=== PATIENT | female | born 1960 | race Caucasian/White ===

== ENCOUNTER 2017-01-19 11:57 | Emergency (ER) | payer OTHER ==
[~2017-01-19] VITALS: Ht 162.6 cm; Wt 60.0 kg
[~2017-01-19 11:57] MED LIST: ADVIL; SYN1; TRAZADONE
[2017-01-19 12:35] VITALS: Ht 162.6 cm; Wt 60.0 kg
[2017-01-19] MEDS ORDERED: ONDANSETRON (ODT) 4 MG TAB ODT STA (12:48)
[2017-01-19] MEDS ORDERED: ACETAMINOPHEN 325 MG TAB PO ONE (13:00)
--- NOTE | 2017-01-19 13:57 | RADRPT ---
PROCEDURE: CT Head without. CLINICAL INDICATION: Headache, vomiting. TECHNIQUE: The study was performed utilizing a multi-slice, multidetector CT scanner. Direct spira l 1 mm axial sections were obtained through the head without the use of intravenous contrast materia l. 1 or more of the following dose reduction techniques were utilized: Automated exposure control, adjustment of the mA and/or kV according to patient's size, iterative reconstruction technique. Co yodit and sagittal reformations were obtained. The images were reviewed on a PACS workstation. RADIATION DOSE: CTDIvol: 44.3 mGyDLP: 630.2 mGy-cm COMPARISON: No prior studies are available for comparison. FINDINGS: There is no intracranial hemorrhage, extra-axial fluid collection, mass lesion, midline shift or hyd rocephalus. The ventricles, sulci and cisterns are within normal limits. The white matter is unrem arkable. The norris-white matter differentiation is preserved. The basal cisterns are patent. The m idline structures are intact. The orbits, calvarium and extracranial soft tissues are normal in malini earance. The visualized paranasal sinuses, mastoid air cells and middle ear cavities are normally ae rated. IMPRESSION: 1. No acute intracranial abnormality. No intracranial hemorrhage, extra-axial fluid collection, ma ss lesion or hydrocephalous. RPTAT: DD .Hadley Silveira MD, MD Date Time Electronically viewed and signed by .Hadley Silveira MD, on 01/19/2017 13:57 .S/
[2017-01-19 14:45] LABS: URINE BLOOD (Dip) POC 1+ (NEGATIVE)
[2017-01-19] MEDS ORDERED: TRAM-40 PO (14:55)
[2017-01-19] MEDS ORDERED: BENA20TA65 PO (14:55)
[2017-01-19] MEDS ORDERED: ONDA8TAB14 PO (14:55)
--- NOTE | 2017-01-19 14:58 | ERD ---
ER Documentation Chief Complaint Date/Time DATE: 01/19/17 TIME: 14:56 Chief Complaint Pt hypertensive, ALAS , vomiting X 1 month. no meds currently. HPI This 48-year-old female complains of elevated blood pressure intermittently for last month associated with bitemporal headache and vomiting which is nonbilious nonbloody. She is intermittent vomiting and nausea but no abdominal pain, urinary complaints, neck stiffness, rashes. She has been seen in another ER and diagnosed with UTI and treated for this and apparently there is some urine culture pending from her primary doctor. She has never had a history of high blood pressure and never been treated. She denies any chest pain shortness of breath or abdominal pain. She denies any weakness or visual changes or bowel or bladder incontinence. ROS All systems reviewed and are negative except as per history of present illness. Medications Home Meds Active Scripts Tramadol Hcl* (Ultram*) 50 Mg Tablet, 50 MG PO Q6H Y for PAIN, #14 TAB Prov:YOHAN VELASQUEZ MD 01/19/17 Ondansetron (Ondansetron Odt) 8 Mg Tab.rapdis, 8 MG PO Q6H Y for NAUSEA AND/OR VOMITING, #6 TAB Prov:YOHAN VELASQUEZ MD 01/19/17 Benazepril Hcl* (Lotensin*) 20 Mg Tablet, 20 MG PO DAILY, #30 TAB Prov:YOHAN VELASQUEZ MD 01/19/17 Reported Medications [Trazadone] No Conflict Check 06/12/13 [Advil] No Conflict Check 06/12/13 Levothyroxine Sodium (Levothroid) 100 Mcg Tablet 02/01/10 Allergies Allergies: Coded Allergies: No Known Allergy (Verified , 01/19/17) PMhx/Soc History of Surgery: Yes (HEMORRHOIDECTOMY) Anesthesia Reaction: No Hx Neurological Disorder: No Hx Respiratory Disorders: No Hx Cardiac Disorders: No Hx Psychiatric Problems: Yes (ANXIETY) Hx Miscellaneous Medical Probl: No Hx Alcohol Use: No Hx Substance Use: No Hx Tobacco Use: No Smoking Status: Never smoker Physical Exam Vitals Vital Signs Date Time Temp Pulse Resp B/P Pulse Ox O2 Delivery O2 Flow Rate FiO2 01/19/17 12:35 64.0 62 18 181/81 99 Physical Exam Const: [] Alert, [id number]. Head: Atraumatic Eyes: Normal Conjunctiva. Eyes are PERRLA and extraocular movements intact ENT: Normal External Ears, Nose and Mouth. Neck: Full range of motion..~ No meningismus. Resp: Clear to auscultation bilaterally Cardio: Regular rate and rhythm, no murmurs Abd: Soft, non tender, non distended. Normal bowel sounds Skin: No petechiae or rashes Back: No midline or flank tenderness Ext: No cyanosis, or edema Neur: Awake and alert. Normal gait. Cranial nerves II through XII grossly intact. No appreciable focal neurologic deficits. Psych: Normal Mood and Affect Results 24 hrs Laboratory Tests Test 01/19/17 14:46 Bedside Urine pH (LAB) 6.0 Bedside Urine Protein (LAB) Negative Bedside Urine Glucose (UA) Negative Bedside Urine Ketones (LAB) Negative Bedside Urine Blood 1+ Bedside Urine Nitrite (LAB) Negative Bedside Urine Leukocyte Esterase (L Negative Current Medications Medications (Trade) Dose Ordered Sig/Alexi Route PRN Reason Start Time Stop Time Status Last Admin Dose Admin Ondansetron HCl (Zofran Odt) 8 mg ONCE STAT ODT 01/19/17 12:48 01/19/17 12:51 DC 01/19/17 13:12 Acetaminophen (Tylenol Tab) 650 mg ONCE ONCE PO 01/19/17 13:00 01/19/17 13:01 DC 01/19/17 13:12 Procedures/MDM Given the uncertain cause of headache associated with vomiting CT brain was performed which was read as normal by the radiologist. Urine shows trace hemoglobin leukocytes, nitrates glucose and sent for culture. Patient is given Tylenol and Zofran by mouth. Patient is taking ibuprofen at home. This should be considered as a cause of her vomiting. Patient will be initiated on Lotensin given her recent high blood pressure. Patient is advised to follow-up with primary doctor this week for urine culture results. We will hold treatment until culture results. Patient should return for fevers, vomiting, chest pain, shortness of breath or new worsening symptoms as directed and aftercare instructions. The patient was stable with no new complaints during the ER course. Clinically, there is no current evidence to suggest meningitis, sepsis, acute abdomen, pneumonia, acute coronary syndrome, pulmonary embolism, or any other emergent condition appearing to require further evaluation or hospitalization. The patient should certainly return for any new or worsening symptoms per the aftercare instructions. They should otherwise follow-up with her primary care doctor for reevaluation this week. Departure Diagnosis: Primary Impression: Hypertension Hypertension type: essential hypertension Qualified Code: I10 - Essential hypertension Condition: Stable Patient Instructions: Headache, Unspecified, Hypertension, New (Begin Treatment ) Additional Instructions: Examines normal hoy. Cheque otro vez con mendiola doctor primario en el proximo [place] or regresa para mas o nueva simptomas. YOHAN VELASQUEZ MD January 19, 2017 14:58
[2017-01-19 15:37] VITALS: BP 170/74; PULSE 56; RESP 18; TEMP 98.3
== END 2017-01-19 15:38 | disposition home or self-care (01) ==
LOC: FTE 11:57
DX: I10 Essential (primary) hypertension (principal); E03.9 Hypothyroidism, unspecified; R51 Headache; R11.2 Nausea with vomiting, unspecified
CPT/HCPCS: 70450; 81003; 87086; 93005; Z7502; Z7610

== ENCOUNTER 2017-02-22 02:43 | Inpatient (IN) | payer OTHER ==
[~2017-02-22] VITALS: Ht 160 cm; Wt 57.6 kg
[~2017-02-22 02:43] MED LIST changes: +BENA20TA65 PO; +ONDA8TAB14 PO; +TRAM-40 PO
[2017-02-22 04:19] VITALS: Ht 160 cm; Wt 57.6 kg
[2017-02-22 04:44] VITALS: BP 171/90; PULSE 52; RESP 18
[2017-02-22] MEDS: morphine 4 MG/ML VIAL IV PRN ×3 (05:49→17:49)
[2017-02-22] MEDS: ONDANSETRON 4 MG INJ IV PRN ×3 (05:50→22:05)
[2017-02-22] MEDS: DEXTROSE 5%-0.45% NACL 1,000 ML IV SCH ×2 (05:56→15:43)
[2017-02-22 06:18] VITALS: BP 148/75; PULSE 60; RESP 17
[2017-02-22 07:08] LABS: ADD SCAN DIFF NO
[2017-02-22 07:12] LABS: BASOPHIL # 0.1 10^3/ul (0.0-0.1); BASOPHILS % 0.9 % (0.0-2.0); EOSINOPHILS # 0.1 10^3/ul (0.0-0.5); EOSINOPHILS % 1.9 % (0.0-7.0); HEMATOCRIT 33.7 % (37.0-47.0); HEMOGLOBIN 11.7 g/dl (12.0-16.0); LYMPHOCYTES # 1.8 10^3/ul (0.8-2.9); LYMPHOCYTES % 27.1 % (15.0-51.0); MEAN CORPUSCULAR HEMOGLOBIN 32.1 pg (29.0-33.0); MEAN CORPUSCULAR HGB CONC 34.7 g/dl (32.0-37.0); MEAN CORPUSCULAR VOLUME 92.6 fl (82.0-101.0); MEAN PLATELET VOLUME 9.8 fl (7.4-10.4); MONOCYTE # 0.3 10^3/ul (0.3-0.9); NEUTROPHIL # 4.4 10^3/ul (1.6-7.5); NEUTROPHILS % 64.8 % (39.0-77.0); PLATELET COUNT 224 10^3/UL (140-415); RED BLOOD COUNT 3.64 10^6/ul (4.20-5.40); WHITE BLOOD COUNT 6.8 10^3/ul (4.8-10.8)
[2017-02-22 07:22] VITALS: BP 155/68; RESP 18
[2017-02-22 07:48] LABS: ALBUMIN 4.2 g/dl (3.3-4.9); ALBUMIN/GLOBULIN RATIO 1.75; BILIRUBIN,INDIRECT 0.8 mg/dl (0-1.1); BILIRUBIN,TOTAL 0.8 mg/dl (0.2-1.3); CALCIUM 8.4 mg/dl (8.4-10.2); CREATININE 0.88 mg/dl (0.44-1.00); MAGNESIUM 2.2 mg/dl (1.7-2.5); PHOSPHORUS 4.2 mg/dl (2.5-4.9); POTASSIUM 3.6 mmol/L (3.5-5.1); TOTAL PROTEIN 6.6 g/dl (6.1-8.1)
--- NOTE | 2017-02-22 08:31 | HP ---
DATE OF ADMISSION: 02/22/2017 TIME SEEN: 6 a.m. CHIEF COMPLAINT: Abdominal pain. HISTORY OF PRESENT ILLNESS: The patient is a 56-year-old female with a history of hypertension, gas tritis, hypothyroidism, anxiety/depression and cholecystectomy who was transferred from an outside ospital because of insurance reasons for management of right upper quadrant pain and choledocholithi asis. The patient presented to the outside hospital complaining of abdominal pain which was mainly localized in the right upper quadrant area. Ultrasound shows sludge as well as dilated common bile duct measuring 8 mm. Labs showed an AST of 292 and ALT of 139. She was transferred here because of insurance reasons with a diagnosis of choledocholithiasis. She reported nausea, but no vomiting. She denied chest pain, shortness of breath, fever, chills. REVIEW OF SYSTEMS: A 12-point review of the brain was performed, negative except as in the HPI. PAST MEDICAL HISTORY: As per HPI. PAST SURGICAL HISTORY: Cholecystectomy in 2013. SOCIAL HISTORY: Denied a history of tobacco, alcohol, or illicit drug use. ALLERGIES: NO KNOWN DRUG ALLERGIES. HOME MEDICATIONS: 1. Benazepril 2. Tramadol. 3. Zofran. 4. Levothyroxine. 5. Trazodone. PHYSICAL EXAMINATION: VITAL SIGNS: Blood pressure 171/90, heart rate 52, respiratory rate 18, temperature 98.2, oxygen sa turation 99% on room air. GENERAL: No acute distress, answering questions appropriately. HEENT: Normocephalic, atraumatic. Extraocular muscles intact. CARDIOVASCULAR: Slightly bradycardic with regular rhythm. LUNGS: Clear. ABDOMEN: Soft. There is tenderness in the right upper quadrant area and in the epigastric area wit h no guarding, rebound tenderness, or rigidity. EXTREMITIES: No edema. NEUROLOGIC: No focal deficits. LABORATORY: From outside hospital, AST 292, ALT 139. IMPRESSION: 1. Likely choledocholithiasis. 2. Right upper quadrant pain, secondary to above. 3. Hypertension, blood pressure not at goal. 4. History of hypothyroidism. 5. History of anxiety/depression. PLAN: Will keep n.p.o. We will obtain MRCP. We will place a GI consult. We will provide pain med ication and antiemetics as needed. Will adjust antihypertensives for better blood pressure control. We will check a TSH in the morning and resume her Synthroid when she is no longer n.p.o. Further workup and management per clinical course. Dictated By: KARISSA FRIEDMAN/LYDIA Conf#: [id number] DID#: [id number]
[2017-02-22] MEDS: BENAZEPRIL 20 MG TAB PO SCH (08:42)
[2017-02-22] MEDS: LEVOTHYROXINE 100 MCG TAB PO SCH (08:42)
--- NOTE | 2017-02-22 17:51 | CONS ---
Date/Time of Note Date/Time of Note DATE: 02/22/17 TIME: 17:42 Assessment/Plan Assessment/Plan Additional Assessment/Plan Assessment: Recurrent epigastric and right upper quadrant pain/abnormal liver function tests Rule out choledocholithiasis Post cholecystectomy 3 years prior Plan: Review MRCP as soon as available patient may require ERCP ERCP was explained to the patient in detail. Consultation Date/Type/Reason Admit Date/Time Feb 22, 2017 at 04:15 Date of Consultation: Feb 22, 2017 Type of Consultation: GI Reason for Consultation Abdominal pain Hx of Present Illness 56-year-old female hospitalized to transfer with complaints of epigastric and right upper quadrant abdominal pain. The patient states that her symptoms are recurrent and initiated shortly after cholecystectomy about 3 years prior, she describes frequent episodes of pain associated with nausea and vomiting. On this occasion the pain has been much more severe. She was seen at another institution where she was tentatively diagnosed choledocholithiasis unfortunately documentation is not available. At the present time she is awaiting MRCP. Of note her liver function tests are significantly elevated which could be consistent with choledocholithiasis. At the present time the patient appears comfortable, there is no fever, chills or diaphoresis. The patient has been advised that pending results of MRCP she may require ERCP with stone removal. The procedure was explained in detail including risks, benefits and alternatives. She is agreeable to proceed if necessary. Constitutional: improved, no complaints Eyes: no complaints ENT: no complaints Respiratory: no complaints Cardiovascular: no complaints Gastrointestinal: nausea, pain (Epigastric right upper quadrant), vomiting, No constipation, No decreased appetite, No diarrhea Genitourinary: no complaints Musculoskeletal: no complaints Skin: no complaints Neurologic: no complaints Endocrine: no complaints Lymphatic: no complaints Psychological: nl mood/affect, no complaints Immunologic: no complaints Past Medical History Medical History: no pertinent history Past Surgical History Past Surgical Hx: cholecystectomy Family History Significant Family History: no pertinent family hx Social History Alcohol Use: rarely Smoking Status: Never smoker Drug Use: none Exam/Review of Systems Vital Signs Vitals Vital Signs Date Time Temp Pulse Resp B/P Pulse Ox O2 Delivery O2 Flow Rate FiO2 02/22/17 07:22 98.5 52 18 155/68 99 02/22/17 06:18 Room Air Intake and Output 02/21/17 02/21/17 02/22/17 15:00 23:00 07:00 Intake Total 0 ml Output Total 500 ml Balance -500 ml Exam Constitutional: alert, oriented, well developed Psych: nl mood/affect, no complaints Head: atraumatic, normocephalic Eyes: EOMI, PERRL, nl conjunctiva, nl lids, nl sclera ENMT: nl external ears & nose, nl lips & teeth, nl nasal mucosa & septum Neck: non-tender, supple Respiratory: clear to auscultation, normal air movement Cardiovascular: nl pulses, regular rate and rhythm Gastrointestinal: bowel sounds, soft, tender (Moderate epigastric and right upper quadrant tenderness.), No ascites, No distended, No mass, No rebound or guarding Musculoskeletal: nl extremities to inspection, nl gait and stance Extremities: normal pulses 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, nl mental status, nl speech, nl strength Skin: nl turgor, No rash or lesions Lymph: nl lymph nodes Results Result Diagram: 02/22/17 0600 02/22/17 0600 Results 24 hrs Laboratory Tests Test 02/22/17 06:00 White Blood Count 6.8 Red Blood Count 3.64 L Hemoglobin 11.7 L Hematocrit 33.7 L Mean Corpuscular Volume 92.6 Mean Corpuscular Hemoglobin 32.1 Mean Corpuscular Hemoglobin Concent 34.7 Red Cell Distribution Width 13.0 Platelet Count 224 Mean Platelet Volume 9.8 Neutrophils % 64.8 Lymphocytes % 27.1 Monocytes % 5.0 Eosinophils % 1.9 Basophils % 0.9 Nucleated Red Blood Cells % 0.0 Neutrophils # 4.4 Lymphocytes # 1.8 Monocytes # 0.3 Eosinophils # 0.1 Basophils # 0.1 Nucleated Red Blood Cells # 0.0 Sodium Level 144 Potassium Level 3.6 Chloride Level 112 H Carbon Dioxide Level 24 Anion Gap 12 Blood Urea Nitrogen 8 Creatinine 0.88 Glucose Level 103 Calcium Level 8.4 Phosphorus Level 4.2 Magnesium Level 2.2 Total Bilirubin 0.8 Direct Bilirubin 0.00 Indirect Bilirubin 0.8 Aspartate Amino Transf (AST/SGOT) 309 H Alanine Aminotransferase (ALT/SGPT) 217 H Alkaline Phosphatase 122 H Total Protein 6.6 Albumin 4.2 Globulin 2.40 Albumin/Globulin Ratio 1.75 Medications Medications Current Medications Dextrose/Sodium Chloride (D5-1/2ns) 1,000 ml @ 100 mls/hr Q10H IV Last administered on 02/22/17 15:43; Admin Dose 100 MLS/HR; Start 02/22/17 at 05:30 Morphine Sulfate (morphine) 4 mg Q4H PRN IV PAIN LEVEL 6-10 Last administered on 02/22/17 11:40; Admin Dose 4 MG; Start 02/22/17 at 05:30 Ondansetron HCl (Zofran Inj) 4 mg Q6H PRN IV NAUSEA AND/OR VOMITING Last administered on 02/22/17 11:40; Admin Dose 4 MG; Start 02/22/17 at 05:30 Benazepril HCl (Lotensin) 20 mg DAILY PO Last administered on 02/22/17 08:42; Admin Dose 20 MG; Start 02/22/17 at 09:00 Levothyroxine Sodium (Synthroid) 100 mcg DAILY@06 PO Last administered on 08:42; Admin Dose 100 MCG; Start 02/22/17 at 09:00 CARLOS OKEEFE MD Feb 22, 2017 17:51
[2017-02-22 19:08] VITALS: BP 138/71; RESP 18
[2017-02-22 19:08] LABS: INR 1.06; PROTIME 13.8 Sec (12.2-14.2); PT RATIO 1.1
[2017-02-22 19:09] LABS: PARTIAL THROMBOPLASTIN TIME 24.7 Sec (25.0-35.0)
--- NOTE | 2017-02-22 21:43 | RADRPT ---
PROCEDURE: MRCP. CLINICAL INDICATION: Pain. TECHNIQUE: MRCP was performed on a high field MRI scanner. Patient was examined without contrast. 3-D coronal rotating MIP images of the biliary tree are available for review. COMPARISON: None. FINDINGS: The gallbladder surgically absent. Mild dilatation of the central intrahepatic ducts is observed. T he common bile duct is mildly dilated. The upper portion of the common bile duct measures approxima tely 8 mm in greatest diameter. The distal portion measures approximately 6-7 mm in greatest diamet er and tapers normally to the level of the ampulla. The common bile duct previously measured 5 mm in greatest diameter. There is no discrete signal voids to suggest the presence of choledocholithiasi s. The pancreatic duct is normal in caliber. The liver and spleen are homogeneous in signal intensity. The pancreas is normal in size and homoge neous in signal intensity. The adrenal glands are normal. The kidneys are symmetric in size and signal intensity. There is a 1.3 cm angiomyolipoma of the uppe r pole of the right kidney, which is unchanged. There is no hydronephrosis or perinephric edema. The abdominal aorta is normal in caliber. The stomach is collapsed. The visualized portions of the small and large intestines are unremarkabl e. There is no ascites. IMPRESSION: Cholecystectomy with mild intrahepatic and extrahepatic biliary duct dilatation, increased from prio r examination. No evidence of choledocholithiasis or extrinsic obstructing lesion. Stable right renal angiomyolipoma. RPTAT: HLST .Radha Park MD, Date Time Electronically viewed and signed by .Radha Park MD, MD on 02/22/2017 21:43 .T/
[2017-02-23] VITALS (9 sets, daily range): BP systolic 130–177; BP diastolic 59–86; PULSE 48–65; RESP 16–20
[2017-02-23] MEDS: morphine 4 MG/ML VIAL IV PRN ×4 (01:31→23:29)
[2017-02-23] MEDS: DEXTROSE 5%-0.45% NACL 1,000 ML IV SCH ×3 (01:31→21:11)
[2017-02-23 05:38] LABS: ADD SCAN DIFF NO
[2017-02-23 05:41] LABS: EOSINOPHILS # 0.3 10^3/ul (0.0-0.5); EOSINOPHILS % 5.9 % (0.0-7.0); HEMOGLOBIN 10.8 g/dl (12.0-16.0); LYMPHOCYTES # 2.1 10^3/ul (0.8-2.9); LYMPHOCYTES % 48.9 % (15.0-51.0); MEAN CORPUSCULAR HEMOGLOBIN 31.6 pg (29.0-33.0); MEAN CORPUSCULAR HGB CONC 32.7 g/dl (32.0-37.0); MEAN CORPUSCULAR VOLUME 96.5 fl (82.0-101.0); MEAN PLATELET VOLUME 10.8 fl (7.4-10.4); MONOCYTE # 0.2 10^3/ul (0.3-0.9); MONOCYTES % 4.3 % (0.0-11.0); NEUTROPHIL # 1.7 10^3/ul (1.6-7.5); NEUTROPHILS % 39.7 % (39.0-77.0); PLATELET COUNT 163 10^3/UL (140-415); RED BLOOD COUNT 3.42 10^6/ul (4.20-5.40); RED CELL DISTRIBUTION WIDTH 13.1 % (11.5-14.5); WHITE BLOOD COUNT 4.2 10^3/ul (4.8-10.8)
[2017-02-23] MEDS: LEVOTHYROXINE 100 MCG TAB PO SCH (05:44)
[2017-02-23 06:03] LABS: INR 1.06; PROTIME 13.8 Sec (12.2-14.2); PT RATIO 1.1
[2017-02-23 06:31] LABS: ALBUMIN 3.8 g/dl (3.3-4.9); ALBUMIN/GLOBULIN RATIO 1.58; BILIRUBIN,INDIRECT 0.7 mg/dl (0-1.1); BILIRUBIN,TOTAL 0.7 mg/dl (0.2-1.3); CALCIUM 8.4 mg/dl (8.4-10.2); CREATININE 0.71 mg/dl (0.44-1.00); POTASSIUM 3.7 mmol/L (3.5-5.1); TOTAL PROTEIN 6.2 g/dl (6.1-8.1)
[2017-02-23 06:55] LABS: THYROID STIMULATING HORMONE 9.57 MIU/L (0.465-4.680)
[2017-02-23] MEDS: ONDANSETRON 4 MG INJ IV PRN (07:43)
[2017-02-23] MEDS: BENAZEPRIL 20 MG TAB PO SCH (09:25)
[2017-02-23] MEDS ORDERED: INDOMETHACIN 50 MG SUPP PR ONE (10:00)
[2017-02-23] MEDS ORDERED: INDOMETHACIN 50 MG SUPP PR SCH (15:00)
--- NOTE | 2017-02-23 15:32 | PN ---
Date/Time of Note Date/Time of Note DATE: 02/23/17 TIME: 15:29 Assessment/Plan VTE Prophylaxis VTE Prophylaxis Intervention: SCD's Lines/Catheters IV [facility] Type (from [facility] Peripheral IV Urinary Cath still in place: No Assessment/Plan Chief Complaint/Hosp Course Assessment and plan 1. Suspect choledocholithiasis. GI following. Tentative plan for ERCP. Will get cardiac clearance 2. Bradycardia. Refractory Tile Helper consulted. Follow-up on echocardiogram. Continue telemetry monitoring. 3. Essential hypertension. Continue antihypertensives and adjust as needed 4. Hypothyroidism. Patient to be resumed on her Synthroid medication 5. History of depression. No active issue at this time. Will monitor. Disposition plan: Patient still with abdominal pain. Continue with analgesics. Tentative plan for ERCP. Follow-up on echocardiogram. Discussed plan of care with Dr. Bridges Problems: Subjective 24 Hr Interval Summary Free Text/Dictation Still reports having abdominal pain Exam/Review of Systems Vital Signs Vitals Vital Signs Date Time Temp Pulse Resp B/P Pulse Ox O2 Delivery O2 Flow Rate FiO2 02/23/17 12:47 48 02/23/17 11:44 98.4 18 132/60 100 02/22/17 06:18 Room Air Intake and Output 02/22/17 02/22/17 02/23/17 14:59 22:59 06:59 Intake Total 1300 ml 1610 ml Output Total 1100 ml Balance 1300 ml 510 ml Exam Constitutional: alert, oriented Psych: nl mood/affect Head: normocephalic Neck: supple, No jvd Respiratory: clear to auscultation Cardiovascular: other (Bradycardic) Gastrointestinal: soft, tender Musculoskeletal: nl extremities to inspection Extremities: normal pulses Neurological: [employer]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9 Monocytes % 4.3 Eosinophils % 5.9 Basophils % 1.0 Nucleated Red Blood Cells % 0.0 Neutrophils # 1.7 Lymphocytes # 2.1 Monocytes # 0.2 L Eosinophils # 0.3 Basophils # 0.0 Nucleated Red Blood Cells # 0.0 Sodium Level 142 Potassium Level 3.7 Chloride Level 111 H Carbon Dioxide Level 22 Anion Gap 13 Blood Urea Nitrogen 4 L Creatinine 0.71 Glucose Level 113 Calcium Level 8.4 Total Bilirubin 0.7 Direct Bilirubin 0.00 Indirect Bilirubin 0.7 Aspartate Amino Transf (AST/SGOT) 216 H Alanine Aminotransferase (ALT/SGPT) 199 H Alkaline Phosphatase 132 H Total Protein 6.2 Albumin 3.8 Globulin 2.40 Albumin/Globulin Ratio 1.58 Thyroid Stimulating Hormone (TSH) 9.570 H Medications Medications Current Medications Dextrose/Sodium Chloride (D5-1/2ns) 1,000 ml @ 100 mls/hr Q10H IV Last administered on 02/23/17 11:39; Admin Dose 100 MLS/HR; Start 02/22/17 at 05:30 Morphine Sulfate (morphine) 4 mg Q4H PRN IV PAIN LEVEL 6-10 Last administered on 02/23/17 01:31; Admin Dose 4 MG; Start 02/22/17 at 05:30 Ondansetron HCl (Zofran Inj) 4 mg Q6H PRN IV NAUSEA AND/OR VOMITING Last administered on 02/23/17 07:43; Admin Dose 4 MG; Start 02/22/17 at 05:30 Benazepril HCl (Lotensin) 20 mg DAILY PO Last administered on 02/23/17 09:25; Admin Dose 20 MG; Start 02/22/17 at 09:00 Levothyroxine Sodium (Synthroid) 100 mcg DAILY@06 PO Last administered on 05:44; Admin Dose 100 MCG; Start 02/22/17 at 09:00 Indomethacin (Indocin Supp) 100 mg ONCE [place] ; Start 02/23/17 at 15:00; Stop at 14:59 DANNI ERIC Feb 23, 2017 15:32
--- NOTE | 2017-02-23 16:28 | PN ---
Date/Time of Note Date/Time of Note DATE: 02/23/17 TIME: 16:25 Assessment/Plan VTE Prophylaxis VTE Prophylaxis Intervention: ambulation Lines/Catheters IV C[facility] Type (from [facility] Peripheral IV Urinary Cath still in place: No Assessment/Plan Assessment/Plan Recurrent epigastric and right upper quadrant pain/abnormal liver function tests Rule out choledocholithiasis Post cholecystectomy 3 years prior Bradycardia Plan: Reschedule ERCP for tomorrow pending cardiac evaluation ERCP was explained to the patient in detail. Subjective 24 Hr Interval Summary Free Text/Dictation * Course reviewed with RN * Patient seen and examined * Patient had episode of bradycardia * ERCP rescheduled for tomorrow Exam/Review of Systems Vital Signs Vitals Vital Signs Date Time Temp Pulse Resp B/P Pulse Ox O2 Delivery O2 Flow Rate FiO2 02/23/17 16:02 98.2 94 20 177/86 98 02/22/17 06:18 Room Air Intake and Output 02/22/17 02/22/17 02/23/17 15:00 23:00 07:00 Intake Total 1300 ml 1610 ml Output Total 1100 ml Balance 1300 ml 510 ml Exam Constitutional: alert Eyes: nl conjunctiva, nl sclera Neck: non-tender, supple Respiratory: clear to auscultation, normal air movement Cardiovascular: nl pulses, regular rate and rhythm Gastrointestinal: non-tender Musculoskeletal: nl extremities to inspection, nl gait and stance Extremities: normal pulses Results Result Diagram: 02/23/17 0436 02/23/17 0436 Results 24 hrs Laboratory Tests Test 02/22/17 18:36 02/23/17 04:36 Prothrombin Time 13.8 13.8 Prothrombin Time Ratio 1.1 1.1 INR International Normalized Ratio 1.06 1.06 Activated Partial Thromboplast Time 24.7 L White Blood Count 4.2 #L Red Blood Count 3.42 L Hemoglobin 10.8 L Hematocrit 33.0 L Mean Corpuscular Volume 96.5 Mean Corpuscular Hemoglobin 31.6 Mean Corpuscular Hemoglobin Concent 32.7 Red Cell Distribution Width 13.1 Platelet Count 163 # Mean Platelet Volume 10.8 H Neutrophils % 39.7 Lymphocytes % 48.9 Monocytes % 4.3 Eosinophils % 5.9 Basophils % 1.0 Nucleated Red Blood Cells % 0.0 Neutrophils # 1.7 Lymphocytes # 2.1 Monocytes # 0.2 L Eosinophils # 0.3 Basophils # 0.0 Nucleated Red Blood Cells # 0.0 Sodium Level 142 Potassium Level 3.7 Chloride Level 111 H Carbon Dioxide Level 22 Anion Gap 13 Blood Urea Nitrogen 4 L Creatinine 0.71 Glucose Level 113 Calcium Level 8.4 Total Bilirubin 0.7 Direct Bilirubin 0.00 Indirect Bilirubin 0.7 Aspartate Amino Transf (AST/SGOT) 216 H Alanine Aminotransferase (ALT/SGPT) 199 H Alkaline Phosphatase 132 H Total Protein 6.2 Albumin 3.8 Globulin 2.40 Albumin/Globulin Ratio 1.58 Thyroid Stimulating Hormone (TSH) 9.570 H Medications Medications Current Medications Dextrose/Sodium Chloride (D5-1/2ns) 1,000 ml @ 100 mls/hr Q10H IV Last administered on 02/23/17 11:39; Admin Dose 100 MLS/HR; Start 02/22/17 at 05:30 Morphine Sulfate (morphine) 4 mg Q4H PRN IV PAIN LEVEL 6-10 Last administered on 02/23/17 15:54; Admin Dose 4 MG; Start 02/22/17 at 05:30 Ondansetron HCl (Zofran Inj) 4 mg Q6H PRN IV NAUSEA AND/OR VOMITING Last administered on 02/23/17 07:43; Admin Dose 4 MG; Start 02/22/17 at 05:30 Benazepril HCl (Lotensin) 20 mg DAILY PO Last administered on 02/23/17 09:25; Admin Dose 20 MG; Start 02/22/17 at 09:00 Levothyroxine Sodium (Synthroid) 100 mcg DAILY@06 PO Last administered on 05:44; Admin Dose 100 MCG; Start 02/22/17 at 09:00 Indomethacin (Indocin Supp) 100 mg ONCE [place] ; Start 02/23/17 at 15:00; Stop at 14:59 Morphine Sulfate (morphine) 4 mg Q3H PRN IV abd pain; Start 02/23/17 at 16:00 CARLOS OKEEFE MD Feb 23, 2017 16:28
[2017-02-24] VITALS (17 sets, daily range): BP systolic 117–203; BP diastolic 63–90; PULSE 46–78; RESP 14–18
[2017-02-24] MEDS: LEVOTHYROXINE 100 MCG TAB PO SCH ×2 (06:00→06:28)
[2017-02-24] MEDS: DEXTROSE 5%-0.45% NACL 1,000 ML IV SCH ×3 (06:28→21:46)
[2017-02-24] MEDS ORDERED: CEFAZOLIN 1 GM INJ ONE (07:00)
[2017-02-24 07:29] LABS: ADD SCAN DIFF NO
[2017-02-24 07:39] LABS: BASOPHILS % 0.7 % (0.0-2.0); EOSINOPHILS # 0.3 10^3/ul (0.0-0.5); HEMATOCRIT 33.6 % (37.0-47.0); HEMOGLOBIN 11.5 g/dl (12.0-16.0); LYMPHOCYTES # 2.1 10^3/ul (0.8-2.9); LYMPHOCYTES % 37.9 % (15.0-51.0); MEAN CORPUSCULAR HEMOGLOBIN 31.8 pg (29.0-33.0); MEAN CORPUSCULAR HGB CONC 34.2 g/dl (32.0-37.0); MEAN CORPUSCULAR VOLUME 92.8 fl (82.0-101.0); MEAN PLATELET VOLUME 10.1 fl (7.4-10.4); MONOCYTE # 0.3 10^3/ul (0.3-0.9); MONOCYTES % 4.6 % (0.0-11.0); NEUTROPHIL # 2.8 10^3/ul (1.6-7.5); NEUTROPHILS % 51.4 % (39.0-77.0); PLATELET COUNT 204 10^3/UL (140-415); RED BLOOD COUNT 3.62 10^6/ul (4.20-5.40); RED CELL DISTRIBUTION WIDTH 12.5 % (11.5-14.5); WHITE BLOOD COUNT 5.4 10^3/ul (4.8-10.8)
--- NOTE | 2017-02-24 07:49 | RADRPT ---
PROCEDURE: XR Chest. CLINICAL INDICATION: PRE OP EVAL TECHNIQUE: Single frontal view of the chest was obtained. COMPARISON: X-ray from 06/12/2013 FINDINGS: The heart and mediastinum are within normal limits. The lungs are clear. There is no significant pleural effusion or pneumothorax. IMPRESSION: No acute disease. RPTAT: EE Physician Ya Date Time Electronically viewed and signed by Anthony Mcdonald Physician on 02/24/2017 07:48 RA/
[2017-02-24 07:59] LABS: CALCIUM 8.6 mg/dl (8.4-10.2); CREATININE 0.73 mg/dl (0.44-1.00); POTASSIUM 3.3 mmol/L (3.5-5.1)
[2017-02-24] MEDS: BENAZEPRIL 20 MG TAB PO SCH (08:38)
[2017-02-24] MEDS: morphine 4 MG/ML VIAL IV PRN ×2 (08:40→21:46)
[2017-02-24] MEDS ORDERED: POTASSIUM CHLORIDE 20 MEQ in SOD CHLORIDE 0.9% 100 ML IVPB ONE (11:00)
--- NOTE | 2017-02-24 11:54 | PN ---
Date/Time of Note Date/Time of Note DATE: 02/24/17 TIME: 11:51 Assessment/Plan VTE Prophylaxis VTE Prophylaxis Intervention: SCD's Lines/Catheters IV C[facility]ter Type (from [facility]): Peripheral IV Urinary Cath still in place: No Assessment/Plan Chief Complaint/Hosp Course Assessment and plan 1. Suspect choledocholithiasis with right upper quadrant abdominal pain. GI following. Tentative plan for ERCP today. 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 Bradycardia. Awaiting echocardiogram result. Continue telemetry monitoring. Appears stable and asymptomatic at present 3. Essential hypertension. Continue antihypertensives and adjust as needed. Stable 4. Hypothyroidism. Continue Synthroid 5. History of depression. No active issue at this time. Will monitor. Disposition plan: Follow-up on echocardiogram result. Tentative plan for ERCP. We will follow-up Discussed plan of care with Dr. Bridges Problems: Subjective 24 Hr Interval Summary Free Text/Dictation Still reports having some abdominal pain but little less today. Exam/Review of Systems Vital Signs Vitals Vital Signs Date Time Temp Pulse Resp B/P Pulse Ox O2 Delivery O2 Flow Rate FiO2 02/24/17 08:13 51 02/24/17 07:47 98.3 18 144/63 99 02/22/17 06:18 Room Air Intake and Output 02/23/17 02/23/17 02/24/17 15:00 23:00 07:00 Intake Total 650 ml 1420 ml 250 ml Output Total 3 ml 4 ml Balance 650 ml 1417 ml 246 ml Exam Constitutional: alert Head: normocephalic Eyes: nl conjunctiva Neck: supple Respiratory: clear to auscultation, normal air movement Cardiovascular: other (Bradycardic) Gastrointestinal: soft, tender Musculoskeletal: nl extremities to inspection, nl gait and stance Extremities: normal pulses 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, nl mental status, nl speech Results Result Diagram: 02/24/17 0706 02/24/17 0706 Results 24 hrs Laboratory Tests Test 02/23/17 17:40 02/24/17 00:18 02/24/17 07:06 Troponin I < 0.012 < 0.012 White Blood Count 5.4 # Red Blood Count 3.62 L Hemoglobin 11.5 L Hematocrit 33.6 L Mean Corpuscular Volume 92.8 Mean Corpuscular Hemoglobin 31.8 Mean Corpuscular Hemoglobin Concent 34.2 Red Cell Distribution Width 12.5 Platelet Count 204 # Mean Platelet Volume 10.1 Neutrophils % 51.4 Lymphocytes % 37.9 Monocytes % 4.6 Eosinophils % 5.0 Basophils % 0.7 Nucleated Red Blood Cells % 0.0 Neutrophils # 2.8 Lymphocytes # 2.1 Monocytes # 0.3 Eosinophils # 0.3 Basophils # 0.0 Nucleated Red Blood Cells # 0.0 Sodium Level 143 Potassium Level 3.3 L Chloride Level 110 Carbon Dioxide Level 25 Anion Gap 11 Blood Urea Nitrogen 4 L Creatinine 0.73 Glucose Level 99 Calcium Level 8.6 Medications Medications Current Medications Dextrose/Sodium Chloride (D5-1/2ns) 1,000 ml @ 100 mls/hr Q10H IV Last administered on 02/24/17 06:28; Admin Dose 100 MLS/HR; Start 02/22/17 at 05:30 Morphine Sulfate (morphine) 4 mg Q4H PRN IV PAIN LEVEL 6-10 Last administered on 02/24/17 08:40; Admin Dose 4 MG; Start 02/22/17 at 05:30 Ondansetron HCl (Zofran Inj) 4 mg Q6H PRN IV NAUSEA AND/OR VOMITING Last administered on 02/23/17 07:43; Admin Dose 4 MG; Start 02/22/17 at 05:30 Benazepril HCl (Lotensin) 20 mg DAILY PO Last administered on 02/23/17 09:25; Admin Dose 20 MG; Start 02/22/17 at 09:00 Levothyroxine Sodium (Synthroid) 100 mcg DAILY@06 PO Last administered on 05:44; Admin Dose 100 MCG; Start 02/22/17 at 09:00 Indomethacin (Indocin Supp) 100 mg ONCE TN ; Start 02/23/17 at 15:00; Stop at 14:59 Morphine Sulfate 4 mg 4 mg Q3H PRN IV abd pain Last administered on 02/23/17 23 :29; Admin Dose 4 MG; Start 02/23/17 at 16:00 Potassium Chloride/Sodium Chloride (KCl/NS) 110 ml @ 55 mls/hr ONCE ONCE IVPB Last administered on 02/24/17 10:56; Admin Dose 55 MLS/HR; Start 02/24/17 at 11 :00; Stop 02/24/17 at 12:59 DANNI ERIC Feb 24, 2017 11:54
--- NOTE | 2017-02-24 14:39 | RADRPT ---
Echocardiogram Report Patient Name: KARYN FERGUSON Gender: Female Date: 1960 Study Date: 23-Feb-2017 Segmental Wall Installer: Ethan Meeks [facility] Location: [id number] Ref. Physician: DANNI ERIC Quality: Good Procedures: Transthoracic echocardiogram with complete 2D, M-Mode, and doppler examination. Indications: Pre-op. 2D/M Mode Doppler Measurement Value Normal Ranges Measurement Value Normal Ranges LVIDd 2D 4.5 3.5 - 5.6 cm AV Peak Ashish 1.2 m/sec LVIDs 2D 2.2 2.1 - 4.1 cm AV Peak PG 6.0 mmHg FS 2D 51.4 % LVOT Peak Ashish 1.1 m/sec LVPWd 2D 1.0 0.6 - 1.1 cm LVOT Peak PG 5.0 mmHg IVSd 2D 1.0 0.6 - 1.1 cm MV E Peak Ashish 1.2 m/sec IVS/LVPW 2D 1.1 MV A Peak Ashish 0.6 m/sec AoR Diam 2D 2.6 2.0 - 3.7 cm MV E/A 1.9 LA/Ao 2D 1 0 - 1 MV Decel Time 183 msec EDV 2D 90.5 cm3 MV E/A 1.9 ESV 2D 10.4 cm3 TR Peak Ashish 2.2 m/sec LA Dimen 2D 3.1 2.3 - 4.0 cm TR Peak PG 20.0 mmHg RVSP 35.0 mmHg Findings Left Ventricle: Normal left ventricular systolic function. Normal left ventricular cavity size. Normal left ventricular wall thickness. Ejection fraction is visually estimated at 5560 %. Abnormal Diastolic Function. Right Ventricle: Normal right ventricular size. Normal right ventricular systolic function. Left Atrium: The left atrium is normal in size. Right Atrium: The right atrium is normal in size. Mitral Valve: Mitral valve leaflets appear mildly thickened. Mild mitral annular calcification. There is trace to mild mitral valve regurgitation. Aortic Valve: Normal appearance of the aortic valve. No significant aortic stenosis or insufficiency. Tricuspid Valve: Normal appearance of the tricuspid valve. Estimated peak PA systolic pressure 35 mmHg. There is mild tricuspid regurgitation. Pulmonic Valve: Normal pulmonic valve appearance. Pericardium: Normal pericardium with no significant pericardial effusion. Aorta: Normal aortic root. IVC: Dilated IVC without respiratory collapse consistent with elevated right atrial pressure. Conclusions Normal left ventricular systolic function. Normal left ventricular cavity size. Normal left ventricular wall thickness. Ejection fraction is visually estimated at 55-60 %. Abnormal Diastolic Function. Mitral valve leaflets appear mildly thickened. Mild mitral annular calcification. There is trace to mild mitral valve regurgitation. Normal appearance of the tricuspid valve. Estimated peak PA systolic pressure 35 mmHg. There is mild tricuspid regurgitation. Electronically Signed By: Luis Alfredo Youssef 24-Feb-2017 14:38:04 -0700 Patient Name: KARYN FERGUSON Study Date: 23-Feb-2017 [id number]
--- NOTE | 2017-02-24 15:02 | CONS ---
DATE OF ADMISSION: 02/22/2017 DATE OF CONSULTATION: 02/24/2017 TYPE OF CONSULTATION: Cardiology REASON FOR CONSULTATION: Bradycardia. REQUESTING PHYSICIAN: Tommy Delaney MD from the hospitalist service. HISTORY OF PRESENT ILLNESS: Ms. Khalil is a 56-year-old female with a history of hypertension, gastr itis, hypothyroidism, anxiety, depression, prior cholecystectomy, who presented with abdominal pain initially to an outside hospital, was then transferred to [facility] due to insura nce reasons. Since arrival, patient has had an MRCP revealing cholecystectomy with mild intrahepati c and extrahepatic biliary duct dilatation. She has had 2 troponins return negative. Additionally, the patient has been noted to have increased LFTs. The patient since admit has had bradycardia in the 50s and as low as the high 40s with stable blood pressures. The patient at this time denies hai st pain, shortness of breath. Does have mild abdominal pain. PAST MEDICAL HISTORY: As above in HPI. The patient denied any prior history of cardiac pathology i ncluding congestive heart failure, cardiac arrhythmias or acute coronary syndrome. MEDICATIONS CURRENTLY IN HOSPITAL: 1. Morphine p.r.n. 2. Indomethacin. 3. Benazepril 20 mg daily. 4. Synthroid 100 mcg daily. 5. IV fluid hydration 100 mL. 6. Zofran p.r.n. ALLERGIES: NO KNOWN DRUG ALLERGIES. SOCIAL HISTORY: No tobacco, ETOH or illicit drug use. FAMILY HISTORY: No history of sudden cardiac or early CAD. REVIEW OF SYSTEMS: As above in HPI. CONSTITUTIONAL: No fevers, chills. PULMONARY: No current shortness of breath. CARDIOVASCULAR: No current chest pain. GASTROINTESTINAL: No vomiting. GENITOURINARY: No hematuria, dysuria. MUSCULOSKELETAL: Degenerative joint disease. PSYCHIATRIC: No documented history of psychiatric issues. PHYSICAL EXAMINATION: VITAL SIGNS: Temperature of 98.3, blood pressure 135/65, pulse 52, saturation 100%. GENERAL: The patient is alert, awake, complaining of abdominal pain. NECK: No jugular venous distention. CHEST: Fair air movement throughout. HEART: Bradycardic, regular rhythm, normal S1, S2, I/ systolic murmur, nondisplaced PMI. ABDOMEN: Positive bowel sounds, soft. EXTREMITIES: No pitting edema, 1+ pulses bilaterally posterior tibial. LABORATORY DATA: White count 5.4, hemoglobin 11.5, platelet count 204. Sodium 143, potassium 3.3, creatinine 0.7, BUN 4. INR 1.9. IMAGING STUDIES: As above in HPI. No further imaging studies for my review at this time. ELECTROCARDIOGRAM: Reveals sinus bradycardia, rate 50, normal axis and intervals with lateral bipha sic T-wave abnormalities. IMPRESSION: 1. Bradycardia to high 40S with stable blood pressure in the setting of hypothyroidism and elevated TSH. The patient refusing Synthroid. 2. Abnormal electrocardiogram with nonspecific ST-T abnormalities. Negative troponins x2. 3. Hypertension, reasonable control. 4. Abdominal pain, likely from biliary source. 5. Abnormal MRCP with intrahepatic and extrahepatic ductal dilatation. 6. Increased liver function tests. 7. Hypothyroidism with elevated TSH. RECOMMENDATIONS: 1. At this time, we will review the patient's 2D echo that has been done and if not found to have a ny significant abnormalities at that time, the patient is okay to proceed to ERCP without further no ninvasive evaluation and would follow up blood pressure and heart rate closely. Check postop EKG. 2. Would encourage the patient to take her Synthroid and would check a T4 to further assess the pat ient's current thyroid state with probable need for increasing Synthroid to improve heart rate. 3. Check a fasting lipid panel for general risk stratification and once the patient's LFTs improve, would consider initiation of statin therapy as necessary. 4. Pain control. 5. Pending ERCP. Thank you for allowing me to take part in the care of this patient. I will continue to follow along very closely with you. Further recommendations will be made as the patient progresses through her inpatient hospital clinical course. Dictated By: KARLI HOOVER/LYDIA Conf#: [id number] DID#: [id number] CC: TOMMY DELANEY MD;*EndCC*
--- NOTE | 2017-02-24 17:52 | RADRPT ---
Vent Rate: 50 bpm RR Interval: 0 msec IA Interval: 156 msec QRS Duration: 82 msec QT Interval: 472 msec QTC Interval: 430 msec P-R-T Cliff: 60 - 34 - 70 degrees Sinus bradycardia Otherwise normal ECG Electronically Signed By: Elvin Montanez [id number]
[2017-02-24] MEDS ORDERED: IOHEXOL 300MG/ML 30 ML BTL ONE (17:57)
[2017-02-24] MEDS ORDERED: FENTAnyl 50 MCG/ML VIAL ONE (18:13)
[2017-02-24] MEDS ORDERED: MIDAZOLAM 1 MG/ML 2 ML INJ ONE (18:13)
[2017-02-24] MEDS ORDERED: ROCURONIUM 50 MG INJ ONE (19:10)
[2017-02-24] MEDS ORDERED: NEOSTIGMINE 3 MG/3 ML SYRINGE ONE (19:10)
[2017-02-24] MEDS ORDERED: ONDANSETRON 4 MG INJ ONE (19:10)
[2017-02-24] MEDS ORDERED: PROPOFOL 20 ML ONE (19:10)
[2017-02-24] MEDS ORDERED: LIDOCAINE 2% (SDV) 5 ML INJ ONE (19:10)
[2017-02-24] MEDS ORDERED: GLYCOPYRROLATE 0.4 MG INJ ONE (19:10)
--- NOTE | 2017-02-24 19:15 | HPN ---
Date/Time of Note Date/Time of Note DATE: 02/24/17 TIME: 19:15 Interval H&P Admission Note Pt. seen H&P reviewed: No system changes CARLOS OKEEFE MD Feb 24, 2017 19:15
[2017-02-24] MEDS ORDERED: hydrALAzine 20 MG INJ ONE (19:21)
[2017-02-24] MEDS ORDERED: DIPHENHYDRAMINE 50 MG INJ IV PRN (19:30)
[2017-02-24] MEDS ORDERED: ONDANSETRON 4 MG INJ IV PRN (19:30)
[2017-02-24] MEDS ORDERED: FENTAnyl 50 MCG/ML VIAL IV PRN (19:30)
[2017-02-24] MEDS ORDERED: MEPERIDINE 25 MG INJ IV PRN (19:30)
[2017-02-24] MEDS ORDERED: hydrALAzine 20 MG INJ IV PRN ×2 (19:30→20:30)
[2017-02-24] MEDS: ONDANSETRON 4 MG INJ IV PRN (19:53)
[2017-02-24] MEDS ORDERED: LABETALOL HCL 20MG INJ IV PRN (20:30)
[2017-02-25] VITALS (12 sets, daily range): BP systolic 93–142; BP diastolic 55–72; PULSE 50–67; RESP 18–20
--- NOTE | 2017-02-25 04:21 | GILP ---
DATE OF PROCEDURE: NAME OF PROCEDURE: Endoscopic retrograde cholangiopancreatography with access and standard sphincter otomy. SURGEON: Carlos Hernandez MD. PREMEDICATION: General anesthesia by anesthesiologist. INSTRUMENT USED: Olympus side-viewing panendoscope. TECHNIQUE: After informed consent, with the patient/relatives understanding the procedure, its indic ations, potential risks and complications, including but not limited to: allergic reaction, bleeding , perforation or infection, and after all pertinent questions were answered to the patients satisfac tion, the patient/relatives signed witnessed informed consent. Following this, premedication was administered slowly IV push under careful cardiovascular and respi ratory monitoring with pulse oximetry, automatic blood pressure and inner tube cutter. Once the sedative effect was achieved the patient was place in the prone position in the radiology s pecial procedures suite; the side viewing panendoscope was introduced and advanced under visual cont rol. Careful examination of the upper gastrointestinal tract, both on insertion as well as withdrawal of the instrument disclosed the following findings: ESOPHAGUS: The mucosa of the entire esophagus appears within normal limits. There is no evidence of esophagitis, varices, neoplasm or stricture. No Hiatal Hernia identified. STOMACH: Upon entrance to the stomach air was insufflated, the gastric martin distended normally. The mucosa of the fundus, body and antrum of the stomach was carefully examined both head-on and on ret roflexion, and shows no abnormalities. There is no evidence of gastritis, ulcers or neoplasm. PYLORUS: The pylorus appears patent and within normal limits, with no evidence of gastric outlet obs truction. DUODENUM: The duodenal mucosa was carefully examined in the duodenal bulb as well as the second port ion of the duodenum and appears unremarkable with no evidence of duodenitis, ulcer or neoplasm. AMPULLA OF VATER: The ampulla was identified and was cannulated. Unfortunately, we entered the panc reas repeatedly with the guidewire. At this point, we elected to leave a guidewire in the pancreati c duct and attempted cannulation with this technique. This also proved to be difficult. At this po int, an access precut sphincterotome was introduced and we very carefully cut the ampulla in the axi s of the common bile duct. After this we were able to selectively cannulate the biliary tree which appears dilated and with obvious poor emptying and following this a balloon catheter was introduced. We sweep the biliary tree and found no stones or sludge or other intraductal abnormalities. As em ptying was dramatically improved, the procedure was terminated. IMPRESSION: 1. Normal pancreatogram. 2. Difficult cannulation requiring access precut sphincterotomy and standard sphincterotomy. Dilat ed common bile duct, but no intraductal stones or other pathology. PLAN: Observation. Further recommendation will depend on the patient's clinical course. Dictated By: CARLOS HERNANDEZ MS/LYDIA Conf#: [id number] DID#: [id number] CC: CARLOS HERNANDEZ; KARISSA SHERIFF MD;*EndCC*
[2017-02-25] MEDS: ONDANSETRON 4 MG INJ IV PRN ×2 (05:31→20:00)
[2017-02-25] MEDS: morphine 4 MG/ML VIAL IV PRN ×4 (05:31→19:51)
[2017-02-25] MEDS: LEVOTHYROXINE 100 MCG TAB PO SCH (05:33)
[2017-02-25 07:40] LABS: ADD SCAN DIFF NO
[2017-02-25 07:44] LABS: BASOPHILS % 0.1 % (0.0-2.0); EOSINOPHILS # 0.1 10^3/ul (0.0-0.5); EOSINOPHILS % 1.7 % (0.0-7.0); HEMATOCRIT 31.9 % (37.0-47.0); HEMOGLOBIN 11.1 g/dl (12.0-16.0); LYMPHOCYTES # 1.4 10^3/ul (0.8-2.9); LYMPHOCYTES % 20.4 % (15.0-51.0); MEAN CORPUSCULAR HEMOGLOBIN 31.4 pg (29.0-33.0); MEAN CORPUSCULAR HGB CONC 34.8 g/dl (32.0-37.0); MEAN CORPUSCULAR VOLUME 90.4 fl (82.0-101.0); MONOCYTE # 0.3 10^3/ul (0.3-0.9); MONOCYTES % 4.9 % (0.0-11.0); NEUTROPHIL # 5.1 10^3/ul (1.6-7.5); NEUTROPHILS % 72.8 % (39.0-77.0); PLATELET COUNT 206 10^3/UL (140-415); RED BLOOD COUNT 3.53 10^6/ul (4.20-5.40); RED CELL DISTRIBUTION WIDTH 12.4 % (11.5-14.5)
[2017-02-25 08:10] LABS: ALBUMIN 3.9 g/dl (3.3-4.9); BILIRUBIN,INDIRECT 0.8 mg/dl (0-1.1); BILIRUBIN,TOTAL 0.8 mg/dl (0.2-1.3)
[2017-02-25 08:11] LABS: CALCIUM 8.4 mg/dl (8.4-10.2); CREATININE 0.66 mg/dl (0.44-1.00); POTASSIUM 3.4 mmol/L (3.5-5.1)
[2017-02-25] MEDS: BENAZEPRIL 20 MG TAB PO SCH (08:27)
[2017-02-25] MEDS: DEXTROSE 5%-0.45% NACL 1,000 ML IV SCH ×4 (08:28→23:07)
--- NOTE | 2017-02-25 08:33 | RADRPT ---
PROCEDURE: X-ray fluoroscopy guidance CLINICAL INDICATION: Abdominal pain, ERCP, fluoroscopic guidance TECHNIQUE: Fluoroscopic guidance was utilized for an intraoperative procedure. COMPARISON: None available FINDINGS: Fluoroscopic guidance was utilized for and intraoperative procedure. 419.6 seconds of fluoroscopy ti me was utilized for the procedure. 6 x-ray images were obtained during the procedure in progress. No gross filling defects are seen in the common bile duct. IMPRESSION: X-ray fluoroscopic guidance utilized for intraoperative procedure. No gross filling defects seen in the common bile duct. Please see procedure note for details. RPTAT: AA .Sigifredo Henson MD, Date Time Electronically viewed and signed by .Sigifredo Henson MD, MD on 02/25/2017 08:32 .P/
--- NOTE | 2017-02-25 09:53 | RADRPT ---
Vent Rate: 49 bpm RR Interval: 0 msec UT Interval: 150 msec QRS Duration: 84 msec QT Interval: 494 msec QTC Interval: 446 msec P-R-T Issue: 62 - 20 - 58 degrees Marked sinus bradycardia Borderline l ECG No previous tracing available for comparison Electronically Signed By: Perez Carrington [id number]
[2017-02-25] MEDS ORDERED: POTASSIUM CHLORIDE (SR) 20 MEQ TAB PO STA (10:41)
--- NOTE | 2017-02-25 15:18 | PN ---
Date/Time of Note Date/Time of Note DATE: 02/25/17 TIME: 15:11 Assessment/Plan VTE Prophylaxis VTE Prophylaxis Intervention: heparin Lines/Catheters IV [facility]from [facility] Peripheral IV Urinary Cath still in place: No Assessment/Plan Chief Complaint/Hosp Course 1. Epigastric abdominal pain, negative MRCP and ERCP, negative EGD(ERCP), probably due to liver disease, liver US, hepatitis panel, ferritin 2. Hypothyroidism with high TSH, increase synthroid to 125 mcg/day 3. Hypertension, stable 4. s/p cholecystectomy Problems: Subjective 24 Hr Interval Summary Free Text/Dictation headache, epigastric pain Exam/Review of Systems Vital Signs Vitals Vital Signs Date Time Temp Pulse Resp B/P Pulse Ox O2 Delivery O2 Flow Rate FiO2 02/25/17 12:31 53 02/25/17 11:42 99.1 18 112/57 99 02/24/17 21:08 Nasal Cannula 2.0 Intake and Output 02/24/17 02/24/17 02/25/17 15:00 23:00 07:00 Intake Total 110 ml 1000 ml 120 ml Balance 110 ml 1000 ml 120 ml Exam Constitutional: alert, oriented, well developed Psych: nl mood/affect, no complaints Head: atraumatic, normocephalic Eyes: EOMI, PERRL, nl conjunctiva, nl lids ENMT: nl external ears & nose, nl lips & teeth, nl nasal mucosa & septum Neck: non-tender, supple Respiratory: clear to auscultation, normal air movement, No congested cough, No crackles/rales, No diminished breath sounds, No intercostal retraction, No labored breathing, No other, No respirations, No tactile fremitus, No wheezing Cardiovascular: nl pulses, regular rate and rhythm, No S3, No S4, No bruits, No diastolic murmur, No edema, No gallop, No irregular rhythm, No jugular venous distention (JVD), No murmurs/extra sounds, No other, No rub, No systolic murmur Gastrointestinal: nl liver, spleen, soft, tender (epigastric tenderness), No ascites, No bowel sounds, No distended, No firm, No hepatomegaly, No mass , No other, No rebound or guarding, No splenomegaly, No surgical scars Musculoskeletal: nl extremities to inspection Extremities: normal pulses, No calf tenderness, No clubbing, No cyanosis, No edema, No other, No palpable cord, No pitting pedal edema, No tenderness 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, nl mental status, nl speech, nl strength Skin: nl turgor, rash or lesions Lymph: nl lymph nodes Results Result Diagram: 02/25/1770402/25/17 0705 Results 24 hrs Laboratory Tests Test 02/25/17 07:05 White Blood Count 7.0 # Red Blood Count 3.53 L Hemoglobin 11.1 L Hematocrit 31.9 L Mean Corpuscular Volume 90.4 Mean Corpuscular Hemoglobin 31.4 Mean Corpuscular Hemoglobin Concent 34.8 Red Cell Distribution Width 12.4 Platelet Count 206 Mean Platelet Volume 10.0 Neutrophils % 72.8 Lymphocytes % 20.4 Monocytes % 4.9 Eosinophils % 1.7 Basophils % 0.1 Nucleated Red Blood Cells % 0.0 Neutrophils # 5.1 Lymphocytes # 1.4 Monocytes # 0.3 Eosinophils # 0.1 Basophils # 0.0 Nucleated Red Blood Cells # 0.0 Sodium Level 140 Potassium Level 3.4 L Chloride Level 108 Carbon Dioxide Level 27 Anion Gap 8 Blood Urea Nitrogen 4 L Creatinine 0.66 Glucose Level 113 Calcium Level 8.4 Total Bilirubin 0.8 Direct Bilirubin 0.00 Indirect Bilirubin 0.8 Aspartate Amino Transf (AST/SGOT) 83 H Alanine Aminotransferase (ALT/SGPT) 133 H Alkaline Phosphatase 163 H Total Protein 6.0 L Albumin 3.9 Medications Medications Current Medications Dextrose/Sodium Chloride (D5-1/2ns) 1,000 ml @ 100 mls/hr Q10H IV Last administered on 02/25/17 08:28; Admin Dose 100 MLS/HR; Start 02/22/17 at 05:30 Morphine Sulfate (morphine) 4 mg Q4H PRN IV PAIN LEVEL 6-10 Last administered on 02/25/17 11:44; Admin Dose 4 MG; Start 02/22/17 at 05:30 Ondansetron HCl (Zofran Inj) 4 mg Q6H PRN IV NAUSEA AND/OR VOMITING Last administered on 02/25/17 05:31; Admin Dose 4 MG; Start 02/22/17 at 05:30 Benazepril HCl (Lotensin) 20 mg DAILY PO Last administered on 02/25/17 08:27; Admin Dose 20 MG; Start 02/22/17 at 09:00 Levothyroxine Sodium (Synthroid) 100 mcg DAILY@06 PO Last administered on 05:44; Admin Dose 100 MCG; Start 02/22/17 at 09:00 Morphine Sulfate (morphine) 4 mg Q3H PRN IV abd pain Last administered on 23:29; Admin Dose 4 MG; Start 02/23/17 at 16:00 TOM ESPITIA MD Feb 25, 2017 15:18
--- NOTE | 2017-02-25 16:42 | PN ---
Date/Time of Note Date/Time of Note DATE: 02/25/17 TIME: 16:37 Assessment/Plan VTE Prophylaxis VTE Prophylaxis Intervention: ambulation Lines/Catheters IV [facility] Peripheral IV Urinary Cath still in place: No Assessment/Plan Assessment/Plan Recurrent epigastric and right upper quadrant pain/abnormal liver function tests S/P cholecystectomy ERCP 02/24/2017 Normal pancreatogram Difficult cannulation requiring access precut sphincterotomy and standard sphincterotomy. Dilated common bile duct, but no intraductal stones or other pathology Bradycardia Plan: continue present management Subjective 24 Hr Interval Summary Free Text/Dictation * Course reviewed with RN * Patient seen and examined * ERCP Normal pancreatogram. Difficult cannulation requiring access precut sphincterotomy and standard sphincterotomy. Dilated common bile duct, but no intraductal stones or other pathology . Exam/Review of Systems Vital Signs Vitals Vital Signs Date Time Temp Pulse Resp B/P Pulse Ox O2 Delivery O2 Flow Rate FiO2 02/25/17 16:29 50 02/25/17 16:13 98.8 18 93/56 98 02/24/17 21:08 Nasal Cannula 2.0 Intake and Output 02/24/17 02/24/17 02/25/17 15:00 23:00 07:00 Intake Total 110 ml 1000 ml 120 ml Balance 110 ml 1000 ml 120 ml Exam Constitutional: alert Head: atraumatic, normocephalic Neck: non-tender, supple Respiratory: clear to auscultation, normal air movement Cardiovascular: nl pulses, regular rate and rhythm Gastrointestinal: non-tender, soft Musculoskeletal: nl extremities to inspection, nl gait and stance Extremities: normal pulses Results Result Diagram: 02/25/17 0702/25/17 07 Results 24 hrs Laboratory Tests Test 02/25/17 07:05 White Blood Count 7.0 # Red Blood Count 3.53 L Hemoglobin 11.1 L Hematocrit 31.9 L Mean Corpuscular Volume 90.4 Mean Corpuscular Hemoglobin 31.4 Mean Corpuscular Hemoglobin Concent 34.8 Red Cell Distribution Width 12.4 Platelet Count 206 Mean Platelet Volume 10.0 Neutrophils % 72.8 Lymphocytes % 20.4 Monocytes % 4.9 Eosinophils % 1.7 Basophils % 0.1 Nucleated Red Blood Cells % 0.0 Neutrophils # 5.1 Lymphocytes # 1.4 Monocytes # 0.3 Eosinophils # 0.1 Basophils # 0.0 Nucleated Red Blood Cells # 0.0 Sodium Level 140 Potassium Level 3.4 L Chloride Level 108 Carbon Dioxide Level 27 Anion Gap 8 Blood Urea Nitrogen 4 L Creatinine 0.66 Glucose Level 113 Calcium Level 8.4 Total Bilirubin 0.8 Direct Bilirubin 0.00 Indirect Bilirubin 0.8 Aspartate Amino Transf (AST/SGOT) 83 H Alanine Aminotransferase (ALT/SGPT) 133 H Alkaline Phosphatase 163 H Total Protein 6.0 L Albumin 3.9 Medications Medications Current Medications Dextrose/Sodium Chloride (D5-1/2ns) 1,000 ml @ 100 mls/hr Q10H IV Last administered on 02/25/17 08:28; Admin Dose 100 MLS/HR; Start 02/22/17 at 05:30 Morphine Sulfate (morphine) 4 mg Q4H PRN IV PAIN LEVEL 6-10 Last administered on 02/25/17 15:25; Admin Dose 4 MG; Start 02/22/17 at 05:30 Ondansetron HCl (Zofran Inj) 4 mg Q6H PRN IV NAUSEA AND/OR VOMITING Last administered on 02/25/17 05:31; Admin Dose 4 MG; Start 02/22/17 at 05:30 Benazepril HCl (Lotensin) 20 mg DAILY PO Last administered on 02/25/17 08:27; Admin Dose 20 MG; Start 02/22/17 at 09:00 Morphine Sulfate (morphine) 4 mg Q3H PRN IV abd pain Last administered on 23:29; Admin Dose 4 MG; Start 02/23/17 at 16:00 Heparin Sodium (Porcine) (Heparin (5000 Units/0.5 ml)) 5,000 unit BID SC ; Start 02/25/17 at 21:00 Levothyroxine Sodium (Synthroid) 125 mcg DAILY@06 PO ; Start 02/26/17 at 06:00 CARLOS OKEEFE MD Feb 25, 2017 16:42
[2017-02-25 16:43] LABS: HAAIG REFLEX REFLEX FILED
--- NOTE | 2017-02-25 18:29 | CONS ---
Date/Time of Note Date/Time of Note DATE: 02/25/17 TIME: 18:21 Assessment/Plan Assessment/Plan Chief Complaint/Hosp Course IMPRESSION: 1. Bradycardia to high 40S with stable blood pressure in the setting of hypothyroidism and elevated TSH. The patient refusing Synthroid. 2. Abnormal electrocardiogram with nonspecific ST-T abnormalities. Negative troponins x2.. NL EF by echo EF 6065 3. Hypertension, reasonable control. 4. Abdominal pain, likely from biliary source. 5. Abnormal MRCP with intrahepatic and extrahepatic ductal dilatation. 6. Increased liver function tests. 7. Hypothyroidism with elevated TSH. RECC: -Tele -Benazepril -s/p ERCP -Continue synthroid Problems: Consultation Date/Type/Reason Admit Date/Time Feb 22, 2017 at 04:15 Initial Consult Date 02/22/17 Type of Consultation: Cardiology Reason for Consultation Mann Referring Provider: HARPER GLASGOW Exam/Review of Systems Vital Signs Vitals Vital Signs Date Time Temp Pulse Resp B/P Pulse Ox O2 Delivery O2 Flow Rate FiO2 02/25/17 16:29 50 02/25/17 16:13 98.8 18 93/56 98 02/24/17 21:08 Nasal Cannula 2.0 Intake and Output 02/24/17 02/24/17 02/25/17 15:00 23:00 07:00 Intake Total 110 ml 1000 ml 120 ml Balance 110 ml 1000 ml 120 ml Exam Review of Systems: CONSTITUTIONAL: No fevers, chills. PULMONARY: No sob CARDIOVASCULAR: No chest pain/palpitations GASTROINTESTINAL: No nausea/vomiting. GENITOURINARY: No hematuria/dysuria. MUSCULOSKELETAL: No myagias/arthalgias. PSYCHIATRIC: The patient denies depression. NEUROLOGIC: No weakness Constitutional: alert, oriented Psych: no complaints Head: normocephalic ENMT: mucosa pink and moist Neck: jvd (8 cm water), supple Respiratory: clear to auscultation Cardiovascular: regular rate and rhythm Gastrointestinal: non-tender, soft Musculoskeletal: muscle tone (normal) Extremities: edema (none) Neurological: other (no focal deficits) Results Result Diagram: 02/25/17 0705 02/25/17 0705 Results 24 hrs Laboratory Tests Test 02/25/17 07:05 02/25/17 16:05 White Blood Count 7.0 # Red Blood Count 3.53 L Hemoglobin 11.1 L Hematocrit 31.9 L Mean Corpuscular Volume 90.4 Mean Corpuscular Hemoglobin 31.4 Mean Corpuscular Hemoglobin Concent 34.8 Red Cell Distribution Width 12.4 Platelet Count 206 Mean Platelet Volume 10.0 Neutrophils % 72.8 Lymphocytes % 20.4 Monocytes % 4.9 Eosinophils % 1.7 Basophils % 0.1 Nucleated Red Blood Cells % 0.0 Neutrophils # 5.1 Lymphocytes # 1.4 Monocytes # 0.3 Eosinophils # 0.1 Basophils # 0.0 Nucleated Red Blood Cells # 0.0 Sodium Level 140 Potassium Level 3.4 L Chloride Level 108 Carbon Dioxide Level 27 Anion Gap 8 Blood Urea Nitrogen 4 L Creatinine 0.66 Glucose Level 113 Calcium Level 8.4 Total Bilirubin 0.8 Direct Bilirubin 0.00 Indirect Bilirubin 0.8 Aspartate Amino Transf (AST/SGOT) 83 H Alanine Aminotransferase (ALT/SGPT) 133 H Alkaline Phosphatase 163 H Total Protein 6.0 L Albumin 3.9 Ferritin Pending Hepatitis B Surface Antigen Pending Hepatitis B Core Total Antibody Pending Hepatitis C Antibody Pending Medications Medications Current Medications Dextrose/Sodium Chloride (D5-1/2ns) 1,000 ml @ 100 mls/hr Q10H IV Last administered on 02/25/17 08:28; Admin Dose 100 MLS/HR; Start 02/22/17 at 05:30 Morphine Sulfate (morphine) 4 mg Q4H PRN IV PAIN LEVEL 6-10 Last administered on 02/25/17 15:25; Admin Dose 4 MG; Start 02/22/17 at 05:30 Ondansetron HCl (Zofran Inj) 4 mg Q6H PRN IV NAUSEA AND/OR VOMITING Last administered on 02/25/17 05:31; Admin Dose 4 MG; Start 02/22/17 at 05:30 Benazepril HCl (Lotensin) 20 mg DAILY PO Last administered on 02/25/17 08:27; Admin Dose 20 MG; Start 02/22/17 at 09:00 Morphine Sulfate (morphine) 4 mg Q3H PRN IV abd pain Last administered on 23:29; Admin Dose 4 MG; Start 02/23/17 at 16:00 Heparin Sodium (Porcine) (Heparin (5000 Units/0.5 ml)) 5,000 unit BID SC ; Start 02/25/17 at 21:00 Levothyroxine Sodium (Synthroid) 125 mcg DAILY@06 PO ; Start 02/26/17 at 06:00 KARLI ALLEN Feb 25, 2017 18:29
[2017-02-25 19:13] LABS: HEPATITIS B CORE ANTIBODY NEGATIVE (NEGATIVE)
[2017-02-25] MEDS: HEPARIN 5,000 UNIT/0.5 ML VIAL SC SCH (20:58)
[2017-02-25] MEDS: traMADol 50 MG TAB PO PRN (23:48)
[2017-02-26] VITALS (13 sets, daily range): BP systolic 113–152; BP diastolic 63–73; PULSE 59–89; RESP 15–20
[2017-02-26] MEDS: morphine 4 MG/ML VIAL IV PRN ×3 (00:45→18:30)
[2017-02-26] MEDS: LEVOTHYROXINE 125 MCG TAB PO SCH (05:56)
[2017-02-26] MEDS: DEXTROSE 5%-0.45% NACL 1,000 ML IV SCH ×2 (05:58→16:45)
[2017-02-26 08:08] LABS: ADD SCAN DIFF NO
[2017-02-26 08:12] LABS: BASOPHILS % 0.5 % (0.0-2.0); EOSINOPHILS # 0.2 10^3/ul (0.0-0.5); EOSINOPHILS % 3.4 % (0.0-7.0); HEMOGLOBIN 10.3 g/dl (12.0-16.0); LYMPHOCYTES # 1.6 10^3/ul (0.8-2.9); LYMPHOCYTES % 25.2 % (15.0-51.0); MEAN CORPUSCULAR HEMOGLOBIN 31.9 pg (29.0-33.0); MEAN CORPUSCULAR HGB CONC 34.3 g/dl (32.0-37.0); MEAN CORPUSCULAR VOLUME 92.9 fl (82.0-101.0); MEAN PLATELET VOLUME 10.4 fl (7.4-10.4); MONOCYTE # 0.3 10^3/ul (0.3-0.9); MONOCYTES % 5.2 % (0.0-11.0); NEUTROPHIL # 4.1 10^3/ul (1.6-7.5); NEUTROPHILS % 65.5 % (39.0-77.0); PLATELET COUNT 183 10^3/UL (140-415); RED BLOOD COUNT 3.23 10^6/ul (4.20-5.40); RED CELL DISTRIBUTION WIDTH 12.6 % (11.5-14.5); WHITE BLOOD COUNT 6.2 10^3/ul (4.8-10.8)
[2017-02-26 08:39] LABS: ALBUMIN 3.6 g/dl (3.3-4.9); ALBUMIN/GLOBULIN RATIO 1.44; BILIRUBIN,INDIRECT 0.4 mg/dl (0-1.1); BILIRUBIN,TOTAL 0.4 mg/dl (0.2-1.3); CALCIUM 8.4 mg/dl (8.4-10.2); CREATININE 0.71 mg/dl (0.44-1.00); POTASSIUM 3.5 mmol/L (3.5-5.1); TOTAL PROTEIN 6.1 g/dl (6.1-8.1)
[2017-02-26] MEDS: HEPARIN 5,000 UNIT/0.5 ML VIAL SC SCH ×2 (08:41→21:46)
[2017-02-26] MEDS: BENAZEPRIL 20 MG TAB PO SCH (08:45)
[2017-02-26] MEDS: ACETAMINOPHEN 325 MG TAB PO PRN ×2 (08:57→21:44)
--- NOTE | 2017-02-26 12:20 | PN ---
Date/Time of Note Date/Time of Note DATE: 02/26/17 TIME: 12:17 Assessment/Plan VTE Prophylaxis VTE Prophylaxis Intervention: ambulation Lines/Catheters IV [facility] Type (from [facility] Peripheral IV Urinary Cath still in place: No Assessment/Plan Assessment/Plan Recurrent epigastric and right upper quadrant pain/abnormal liver function tests S/P cholecystectomy ERCP 02/24/2017 Normal pancreatogram Difficult cannulation requiring access precut sphincterotomy and standard sphincterotomy. Dilated common bile duct, but no intraductal stones or other pathology Bradycardia improved Plan: continue present management Subjective 24 Hr Interval Summary Free Text/Dictation * Course reviewed with RN * Patient seen and examined * Complains of headache,no vomiting * denies abdominal pain * Liver enzymes improving Exam/Review of Systems Vital Signs Vitals Vital Signs Date Time Temp Pulse Resp B/P Pulse Ox O2 Delivery O2 Flow Rate FiO2 02/26/17 11:53 99.4 72 18 113/63 96 02/24/17 21:08 Nasal Cannula 2.0 Intake and Output 02/25/17 02/25/17 02/26/17 15:00 23:00 07:00 Intake Total 1860 ml 1100 ml Output Total 3100 ml Balance -1240 ml 1100 ml Exam Constitutional: alert, oriented Neck: non-tender, supple Respiratory: clear to auscultation, normal air movement Cardiovascular: nl pulses, regular rate and rhythm Gastrointestinal: nl liver, spleen, non-tender, soft Musculoskeletal: nl extremities to inspection, nl gait and stance Extremities: normal pulses Results Result Diagram: 02/26/17 0623 02/26/17 0623 Results 24 hrs Laboratory Tests Test 02/25/17 16:05 02/26/17 06:23 Ferritin 136.0 Hepatitis B Surface Antigen NEGATIVE Hepatitis B Core Total Antibody NEGATIVE Hepatitis C Antibody NEGATIVE White Blood Count 6.2 Red Blood Count 3.23 L Hemoglobin 10.3 L Hematocrit 30.0 L Mean Corpuscular Volume 92.9 Mean Corpuscular Hemoglobin 31.9 Mean Corpuscular Hemoglobin Concent 34.3 Red Cell Distribution Width 12.6 Platelet Count 183 Mean Platelet Volume 10.4 Neutrophils % 65.5 Lymphocytes % 25.2 Monocytes % 5.2 Eosinophils % 3.4 Basophils % 0.5 Nucleated Red Blood Cells % 0.0 Neutrophils # 4.1 Lymphocytes # 1.6 Monocytes # 0.3 Eosinophils # 0.2 Basophils # 0.0 Nucleated Red Blood Cells # 0.0 Sodium Level 137 Potassium Level 3.5 Chloride Level 108 Carbon Dioxide Level 24 Anion Gap 9 Blood Urea Nitrogen 4 L Creatinine 0.71 Glucose Level 114 Calcium Level 8.4 Total Bilirubin 0.4 Direct Bilirubin 0.00 Indirect Bilirubin 0.4 Aspartate Amino Transf (AST/SGOT) 32 Alanine Aminotransferase (ALT/SGPT) 97 H Alkaline Phosphatase 133 H Total Protein 6.1 Albumin 3.6 Globulin 2.50 Albumin/Globulin Ratio 1.44 Medications Medications Current Medications Dextrose/Sodium Chloride (D5-1/2ns) 1,000 ml @ 100 mls/hr Q10H IV Last administered on 02/26/17 05:58; Admin Dose 100 MLS/HR; Start 02/22/17 at 05:30 Morphine Sulfate (morphine) 4 mg Q4H PRN IV PAIN LEVEL 6-10 Last administered on 02/26/17 05:52; Admin Dose 4 MG; Start 02/22/17 at 05:30 Ondansetron HCl (Zofran Inj) 4 mg Q6H PRN IV NAUSEA AND/OR VOMITING Last administered on 02/25/17 20:00; Admin Dose 4 MG; Start 02/22/17 at 05:30 Benazepril HCl (Lotensin) 20 mg DAILY PO Last administered on 02/26/17 08:45; Admin Dose 20 MG; Start 02/22/17 at 09:00 Morphine Sulfate (morphine) 4 mg Q3H PRN IV abd pain Last administered on 23:29; Admin Dose 4 MG; Start 02/23/17 at 16:00 Heparin Sodium (Porcine) (Heparin (5000 Units/0.5 ml)) 5,000 unit BID SC Last administered on 02/26/17 08:41; Admin Dose 5,000 UNIT; Start 02/25/17 at 21:00 Levothyroxine Sodium (Synthroid) 125 mcg DAILY@06 PO ; Start 02/26/17 at 06:00 Acetaminophen (Tylenol Tab) 650 mg Q6 PRN PO PAIN AND OR ELEVATED TEMP Last administered on 02/26/17 08:57; Admin Dose 650 MG; Start 02/25/17 at 23:30 Tramadol HCl (Ultram) 50 mg Q4 PRN PO PAIN Last administered on 6/8/17at 23:48 ; Admin Dose 50 MG; Start 02/25/17 at 23:30 CARLOS OKEEFE MD Feb 26, 2017 12:20
[2017-02-26] MEDS: ONDANSETRON 4 MG INJ IV PRN (13:31)
--- NOTE | 2017-02-26 13:31 | CONS ---
Date/Time of Note Date/Time of Note DATE: 02/26/17 TIME: 13:29 Assessment/Plan Assessment/Plan Chief Complaint/Hosp Course IMPRESSION: 1. Bradycardia to high 40S with stable blood pressure in the setting of hypothyroidism and elevated TSH. The patient refusing Synthroid. 2. Abnormal electrocardiogram with nonspecific ST-T abnormalities. Negative troponins x2.. NL EF by echo EF 6065 3. Hypertension, reasonable control. 4. Abdominal pain, likely from biliary source. 5. Abnormal MRCP with intrahepatic and extrahepatic ductal dilatation s/p ERCP 6. Increased liver function tests. 7. Hypothyroidism with elevated TSH s/p incrase in synthroid with improved bradycardia RECC: -Tele -Benazepril -Continue synthroid -Follow HR/BP closely -ONgoing GI eval Problems: Consultation Date/Type/Reason Admit Date/Time Feb 22, 2017 at 04:15 Initial Consult Date 02/22/17 Type of Consultation: Cardiology Reason for Consultation BRadycardia/pre-op Referring Provider: HARPER GLASGOW Exam/Review of Systems Vital Signs Vitals Vital Signs Date Time Temp Pulse Resp B/P Pulse Ox O2 Delivery O2 Flow Rate FiO2 02/26/17 12:21 62 02/26/17 11:53 99.4 18 113/63 96 02/24/17 21:08 Nasal Cannula 2.0 Intake and Output 02/25/17 02/25/17 02/26/17 15:00 23:00 07:00 Intake Total 1860 ml 1100 ml Output Total 3100 ml Balance -1240 ml 1100 ml Exam Review of Systems: CONSTITUTIONAL: No fevers, chills. PULMONARY: No sob CARDIOVASCULAR: No chest pain/palpitations GASTROINTESTINAL: No nausea/vomiting. GENITOURINARY: No hematuria/dysuria. MUSCULOSKELETAL: No myagias/arthalgias. PSYCHIATRIC: The patient denies depression. NEUROLOGIC: No weakness Constitutional: alert Psych: no complaints Head: normocephalic ENMT: mucosa pink and moist Neck: jvd (8 cm water), supple Respiratory: clear to auscultation Cardiovascular: regular rate and rhythm Gastrointestinal: non-tender, soft Musculoskeletal: muscle tone (normal) Extremities: edema (none) Results Result Diagram: 02/26/17 0623 02/26/17 0623 Results 24 hrs Laboratory Tests Test 02/25/17 16:05 02/26/17 06:23 Ferritin 136.0 Hepatitis B Surface Antigen NEGATIVE Hepatitis B Core Total Antibody NEGATIVE Hepatitis C Antibody NEGATIVE White Blood Count 6.2 Red Blood Count 3.23 L Hemoglobin 10.3 L Hematocrit 30.0 L Mean Corpuscular Volume 92.9 Mean Corpuscular Hemoglobin 31.9 Mean Corpuscular Hemoglobin Concent 34.3 Red Cell Distribution Width 12.6 Platelet Count 183 Mean Platelet Volume 10.4 Neutrophils % 65.5 Lymphocytes % 25.2 Monocytes % 5.2 Eosinophils % 3.4 Basophils % 0.5 Nucleated Red Blood Cells % 0.0 Neutrophils # 4.1 Lymphocytes # 1.6 Monocytes # 0.3 Eosinophils # 0.2 Basophils # 0.0 Nucleated Red Blood Cells # 0.0 Sodium Level 137 Potassium Level 3.5 Chloride Level 108 Carbon Dioxide Level 24 Anion Gap 9 Blood Urea Nitrogen 4 L Creatinine 0.71 Glucose Level 114 Calcium Level 8.4 Total Bilirubin 0.4 Direct Bilirubin 0.00 Indirect Bilirubin 0.4 Aspartate Amino Transf (AST/SGOT) 32 Alanine Aminotransferase (ALT/SGPT) 97 H Alkaline Phosphatase 133 H Total Protein 6.1 Albumin 3.6 Globulin 2.50 Albumin/Globulin Ratio 1.44 Medications Medications Current Medications Dextrose/Sodium Chloride (D5-1/2ns) 1,000 ml @ 100 mls/hr Q10H IV Last administered on 02/26/17 05:58; Admin Dose 100 MLS/HR; Start 02/22/17 at 05:30 Morphine Sulfate (morphine) 4 mg Q4H PRN IV PAIN LEVEL 6-10 Last administered on 02/26/17 05:52; Admin Dose 4 MG; Start 02/22/17 at 05:30 Ondansetron HCl (Zofran Inj) 4 mg Q6H PRN IV NAUSEA AND/OR VOMITING Last administered on 02/25/17 20:00; Admin Dose 4 MG; Start 02/22/17 at 05:30 Benazepril HCl (Lotensin) 20 mg DAILY PO Last administered on 02/26/17 08:45; Admin Dose 20 MG; Start 02/22/17 at 09:00 Morphine Sulfate (morphine) 4 mg Q3H PRN IV abd pain Last administered on 23:29; Admin Dose 4 MG; Start 02/23/17 at 16:00 Heparin Sodium (Porcine) (Heparin (5000 Units/0.5 ml)) 5,000 unit BID SC Last administered on 02/26/17 08:41; Admin Dose 5,000 UNIT; Start 02/25/17 at 21:00 Levothyroxine Sodium (Synthroid) 125 mcg DAILY@06 PO ; Start 02/26/17 at 06:00 Acetaminophen (Tylenol Tab) 650 mg Q6 PRN PO PAIN AND OR ELEVATED TEMP Last administered on 02/26/17 08:57; Admin Dose 650 MG; Start 02/25/17 at 23:30 Tramadol HCl (Ultram) 50 mg Q4 PRN PO PAIN Last administered on 02/25/17 23:48 ; Admin Dose 50 MG; Start 02/25/17 at 23:30 KARLI ALLEN Feb 26, 2017 13:31
--- NOTE | 2017-02-26 15:45 | PN ---
Date/Time of Note Date/Time of Note DATE: 02/26/17 TIME: 15:43 Assessment/Plan VTE Prophylaxis VTE Prophylaxis Intervention: heparin Lines/Catheters IV C[facility]ter Type [facility]from [facility]): Peripheral IV Urinary Cath still in place: No Assessment/Plan Chief Complaint/Hosp Course 1. Intractable nausea and vomiting, s/p ERCP, negative EGD(ERCP), foloow up with GI 2. Hypothyroidism with high TSH, increase synthroid to 125 mcg/day 3. Hypertension, stable 4. s/p cholecystectomy 5. DVT prophylaxis: heparin Problems: Subjective 24 Hr Interval Summary Free Text/Dictation still nausea, vomited after eating Exam/Review of Systems Vital Signs Vitals Vital Signs Date Time Temp Pulse Resp B/P Pulse Ox O2 Delivery O2 Flow Rate FiO2 02/26/17 12:21 62 02/26/17 11:53 99.4 18 113/63 96 02/24/17 21:08 Nasal Cannula 2.0 Intake and Output 02/25/17 02/25/17 02/26/17 15:00 23:00 07:00 Intake Total 1860 ml 1100 ml Output Total 3100 ml Balance -1240 ml 1100 ml Exam Constitutional: alert, oriented, well developed Psych: nl mood/affect, no complaints Head: atraumatic, normocephalic Eyes: EOMI, PERRL, nl conjunctiva, nl lids ENMT: nl external ears & nose, nl lips & teeth, nl nasal mucosa & septum Neck: non-tender, supple Respiratory: clear to auscultation, normal air movement, No congested cough, No crackles/rales, No diminished breath sounds, No intercostal retraction, No labored breathing, No other, No respirations, No tactile fremitus, No wheezing Cardiovascular: nl pulses, regular rate and rhythm, No S3, No S4, No bruits, No diastolic murmur, No edema, No gallop, No irregular rhythm, No jugular venous distention (JVD), No murmurs/extra sounds, No other, No rub, No systolic murmur Gastrointestinal: nl liver, spleen, non-tender, soft, No ascites, No bowel sounds, No distended, No firm, No hepatomegaly, No mass , No other, No rebound or guarding, No splenomegaly, No surgical scars, No tender Musculoskeletal: nl extremities to inspection Extremities: normal pulses, No calf tenderness, No clubbing, No cyanosis, No edema, No other, No palpable cord, No pitting pedal edema, No tenderness Neurological: EXERCISER HORSE II-XII intact, nl mental status, nl speech, nl strength Skin: nl turgor Lymph: nl lymph nodes Results Result Diagram: 02/26/17 0623 02/26/17 0623 Results 24 hrs Laboratory Tests Test 02/25/17 16:05 02/25/17 16:43 02/26/17 06:23 Ferritin 136.0 Smooth Muscle Antibody Interpret NEGATIVE Hepatitis B Surface Antigen NEGATIVE Hepatitis B Core Total Antibody NEGATIVE Hepatitis C Antibody NEGATIVE Hepatitis A IgM Antibody NON-REACTIVE White Blood Count 6.2 Red Blood Count 3.23 L Hemoglobin 10.3 L Hematocrit 30.0 L Mean Corpuscular Volume 92.9 Mean Corpuscular Hemoglobin 31.9 Mean Corpuscular Hemoglobin Concent 34.3 Red Cell Distribution Width 12.6 Platelet Count 183 Mean Platelet Volume 10.4 Neutrophils % 65.5 Lymphocytes % 25.2 Monocytes % 5.2 Eosinophils % 3.4 Basophils % 0.5 Nucleated Red Blood Cells % 0.0 Neutrophils # 4.1 Lymphocytes # 1.6 Monocytes # 0.3 Eosinophils # 0.2 Basophils # 0.0 Nucleated Red Blood Cells # 0.0 Sodium Level 137 Potassium Level 3.5 Chloride Level 108 Carbon Dioxide Level 24 Anion Gap 9 Blood Urea Nitrogen 4 L Creatinine 0.71 Glucose Level 114 Calcium Level 8.4 Total Bilirubin 0.4 Direct Bilirubin 0.00 Indirect Bilirubin 0.4 Aspartate Amino Transf (AST/SGOT) 32 Alanine Aminotransferase (ALT/SGPT) 97 H Alkaline Phosphatase 133 H Total Protein 6.1 Albumin 3.6 Globulin 2.50 Albumin/Globulin Ratio 1.44 Medications Medications Current Medications Dextrose/Sodium Chloride (D5-1/2ns) 1,000 ml @ 100 mls/hr Q10H IV Last administered on 02/26/17 05:58; Admin Dose 100 MLS/HR; Start 02/22/17 at 05:30 Morphine Sulfate (morphine) 4 mg Q4H PRN IV PAIN LEVEL 6-10 Last administered on 02/26/17 05:52; Admin Dose 4 MG; Start 02/22/17 at 05:30 Ondansetron HCl (Zofran Inj) 4 mg Q6H PRN IV NAUSEA AND/OR VOMITING Last administered on 02/26/17 13:31; Admin Dose 4 MG; Start 02/22/17 at 05:30 Benazepril HCl (Lotensin) 20 mg DAILY PO Last administered on 02/26/17 08:45; Admin Dose 20 MG; Start 02/22/17 at 09:00 Morphine Sulfate (morphine) 4 mg Q3H PRN IV abd pain Last administered on 23:29; Admin Dose 4 MG; Start 02/23/17 at 16:00 Heparin Sodium (Porcine) (Heparin (5000 Units/0.5 ml)) 5,000 unit BID SC Last administered on 02/26/17 08:41; Admin Dose 5,000 UNIT; Start 02/25/17 at 21:00 Levothyroxine Sodium (Synthroid) 125 mcg DAILY@06 PO ; Start 02/26/17 at 06:00 Acetaminophen (Tylenol Tab) 650 mg Q6 PRN PO PAIN AND OR ELEVATED TEMP Last administered on 02/26/17 08:57; Admin Dose 650 MG; Start 02/25/17 at 23:30 Tramadol HCl (Ultram) 50 mg Q4 PRN PO PAIN Last administered on 02/25/17 23:48 ; Admin Dose 50 MG; Start 02/25/17 at 23:30 TOM ESPITIA MD Feb 26, 2017 15:45
[2017-02-26] MEDS: traMADol 50 MG TAB PO PRN (16:54)
[2017-02-27] VITALS (12 sets, daily range): BP systolic 133–164; BP diastolic 65–79; PULSE 57–68; RESP 18–20
[2017-02-27] MEDS: DEXTROSE 5%-0.45% NACL 1,000 ML IV SCH ×2 (03:07→15:36)
[2017-02-27] MEDS: traMADol 50 MG TAB PO PRN (04:45)
[2017-02-27] MEDS: LEVOTHYROXINE 125 MCG TAB PO SCH (06:22)
[2017-02-27] MEDS: morphine 4 MG/ML VIAL IV PRN ×3 (06:27→15:35)
[2017-02-27 08:31] LABS: ADD SCAN DIFF NO
[2017-02-27 08:33] LABS: BASOPHILS % 0.6 % (0.0-2.0); EOSINOPHILS # 0.2 10^3/ul (0.0-0.5); EOSINOPHILS % 3.1 % (0.0-7.0); HEMATOCRIT 30.7 % (37.0-47.0); HEMOGLOBIN 10.3 g/dl (12.0-16.0); LYMPHOCYTES # 1.5 10^3/ul (0.8-2.9); LYMPHOCYTES % 22.6 % (15.0-51.0); MEAN CORPUSCULAR HEMOGLOBIN 31.2 pg (29.0-33.0); MEAN CORPUSCULAR HGB CONC 33.6 g/dl (32.0-37.0); MEAN PLATELET VOLUME 10.4 fl (7.4-10.4); MONOCYTE # 0.4 10^3/ul (0.3-0.9); MONOCYTES % 5.5 % (0.0-11.0); NEUTROPHIL # 4.4 10^3/ul (1.6-7.5); PLATELET COUNT 173 10^3/UL (140-415); RED CELL DISTRIBUTION WIDTH 12.6 % (11.5-14.5); WHITE BLOOD COUNT 6.5 10^3/ul (4.8-10.8)
[2017-02-27 09:00] LABS: ANION GAP 11 (8-16); CALCIUM 8.9 mg/dl (8.4-10.2); CARBON DIOXIDE 26 mmol/L (21-31); CHLORIDE 109 mmol/L (97-110); CREATININE 0.66 mg/dl (0.44-1.00); GLUCOSE 110 mg/dl (70-220); POTASSIUM 3.4 mmol/L (3.5-5.1); SODIUM 143 mmol/L (135-144)
[2017-02-27 09:05] LABS: BLOOD UREA NITROGEN < 2 mg/dl (7-20)
--- NOTE | 2017-02-27 09:26 | PN ---
Date/Time of Note Date/Time of Note DATE: 02/27/17 TIME: 09:20 Assessment/Plan VTE Prophylaxis VTE Prophylaxis Intervention: SCD's Lines/Catheters [facility] Peripheral IV Urinary Cath still in place: No Assessment/Plan Assessment/Plan Recurrent epigastric and right upper quadrant pain/abnormal liver function tests improved S/P cholecystectomy ERCP 02/24/2017 Normal pancreatogram Difficult cannulation requiring access precut sphincterotomy and standard sphincterotomy. Dilated common bile duct, but no intraductal stones or other pathology Bradycardia improved Plan: continue present management stable for outpatient management case was discussed with Dr Hernandez Subjective 24 Hr Interval Summary Free Text/Dictation * Course reviewed with RN * Patient seen and examined * Denies abdominal pain * Liver enzymes improving Exam/Review of Systems Vital Signs Vitals Vital Signs Date Time Temp Pulse Resp B/P Pulse Ox O2 Delivery O2 Flow Rate FiO2 02/27/17 08:16 63 02/27/17 07:39 98.4 18 133/68 98 02/24/17 21:08 Nasal Cannula 2.0 Intake and Output 02/26/17 02/26/17 02/27/17 15:00 23:00 07:00 Intake Total 2160 ml 800 ml Output Total 1800 ml Balance 360 ml 800 ml Exam Constitutional: alert Head: normocephalic Eyes: nl sclera Neck: supple Respiratory: clear to auscultation, normal air movement Cardiovascular: nl pulses, regular rate and rhythm Gastrointestinal: nl liver, spleen, soft Musculoskeletal: nl extremities to inspection, nl gait and stance Extremities: normal pulses Neurological: nl mental status Results Result Diagram: 02/27/17 0756 02/27/17 0756 Results 24 hrs Laboratory Tests Test 02/27/17 07:56 White Blood Count 6.5 Red Blood Count 3.30 L Hemoglobin 10.3 L Hematocrit 30.7 L Mean Corpuscular Volume 93.0 Mean Corpuscular Hemoglobin 31.2 Mean Corpuscular Hemoglobin Concent 33.6 Red Cell Distribution Width 12.6 Platelet Count 173 Mean Platelet Volume 10.4 Neutrophils % 68.0 Lymphocytes % 22.6 Monocytes % 5.5 Eosinophils % 3.1 Basophils % 0.6 Nucleated Red Blood Cells % 0.0 Neutrophils # 4.4 Lymphocytes # 1.5 Monocytes # 0.4 Eosinophils # 0.2 Basophils # 0.0 Nucleated Red Blood Cells # 0.0 Sodium Level 143 Potassium Level 3.4 L Chloride Level 109 Carbon Dioxide Level 26 Anion Gap 11 Blood Urea Nitrogen < 2 L Creatinine 0.66 Glucose Level 110 Calcium Level 8.9 Medications Medications Current Medications Dextrose/Sodium Chloride (D5-1/2ns) 1,000 ml @ 100 mls/hr Q10H IV Last administered on 02/27/17 03:07; Admin Dose 100 MLS/HR; Start 02/22/17 at 05:30 Morphine Sulfate (morphine) 4 mg Q4H PRN IV PAIN LEVEL 6-10 Last administered on 02/27/17 06:27; Admin Dose 4 MG; Start 02/22/17 at 05:30 Ondansetron HCl (Zofran Inj) 4 mg Q6H PRN IV NAUSEA AND/OR VOMITING Last administered on 02/26/17 13:31; Admin Dose 4 MG; Start 02/22/17 at 05:30 Benazepril HCl (Lotensin) 20 mg DAILY PO Last administered on 02/26/17 08:45; Admin Dose 20 MG; Start 02/22/17 at 09:00 Morphine Sulfate (morphine) 4 mg Q3H PRN IV abd pain Last administered on 23:29; Admin Dose 4 MG; Start 02/23/17 at 16:00 Heparin Sodium (Porcine) (Heparin (5000 Units/0.5 ml)) 5,000 unit BID SC Last administered on 02/26/17 21:46; Admin Dose 5,000 UNIT; Start 02/25/17 at 21:00 Levothyroxine Sodium (Synthroid) 125 mcg DAILY@06 PO Last administered on 06:22; Admin Dose 125 MCG; Start 02/26/17 at 06:00 Acetaminophen (Tylenol Tab) 650 mg Q6 PRN PO PAIN AND OR ELEVATED TEMP Last administered on 02/26/17 21:44; Admin Dose 650 MG; Start 02/25/17 at 23:30 Tramadol HCl (Ultram) 50 mg Q4 PRN PO PAIN Last administered on 02/27/17 04:45 ; Admin Dose 50 MG; Start 02/25/17 at 23:30 ENRRIQUE AYOUB NP Feb 27, 2017 09:26
[2017-02-27] MEDS: BENAZEPRIL 20 MG TAB PO SCH (09:27)
[2017-02-27] MEDS: HEPARIN 5,000 UNIT/0.5 ML VIAL SC SCH ×2 (09:28→20:56)
[2017-02-27] MEDS ORDERED: POTASSIUM CHLORIDE (SR) 20 MEQ TAB PO STA (12:24)
--- NOTE | 2017-02-27 12:33 | PN ---
Date/Time of Note Date/Time of Note DATE: 02/27/17 TIME: 12:29 Assessment/Plan VTE Prophylaxis VTE Prophylaxis Intervention: LMWH Lines/Catheters IV Catheter Type (from [facility]): Peripheral IV Urinary Cath still in place: No Assessment/Plan Problems: (1) History of sphincterotomy of sphincter of Oddi Status: Acute Comment: Hopefully this is because some improvement. I am going to go ahead and give her some sucralfate to see if this gives her some degree of comfort. (2) Abdominal pain Status: Acute Comment: With the assistance of GI will get this worked out Qualifiers: Abdominal location: epigastric Qualified Code: R10.13 - Epigastric pain Subjective 24 Hr Interval Summary Free Text/Dictation Patient reports that she is having pain and actually needed to take morphine. She states she wants to go home. Constitutional: no complaints Respiratory: no complaints Cardiovascular: no complaints Gastrointestinal: no complaints Genitourinary: no complaints Exam/Review of Systems Vital Signs Vitals Vital Signs Date Time Temp Pulse Resp B/P Pulse Ox O2 Delivery O2 Flow Rate FiO2 02/27/17 12:15 57 02/27/17 11:30 98.0 20 134/74 100 02/24/17 21:08 Nasal Cannula 2.0 Intake and Output 02/26/17 02/26/17 02/27/17 15:00 23:00 07:00 Intake Total 2160 ml 800 ml Output Total 1800 ml Balance 360 ml 800 ml Exam Constitutional: alert, oriented Neck: non-tender, supple Respiratory: clear to auscultation, normal air movement Cardiovascular: nl pulses, regular rate and rhythm Gastrointestinal: nl liver, spleen, soft Results Result Diagram: 02/27/17 0756 02/27/17 0756 Results 24 hrs Laboratory Tests Test 02/27/17 07:56 White Blood Count 6.5 Red Blood Count 3.30 L Hemoglobin 10.3 L Hematocrit 30.7 L Mean Corpuscular Volume 93.0 Mean Corpuscular Hemoglobin 31.2 Mean Corpuscular Hemoglobin Concent 33.6 Red Cell Distribution Width 12.6 Platelet Count 173 Mean Platelet Volume 10.4 Neutrophils % 68.0 Lymphocytes % 22.6 Monocytes % 5.5 Eosinophils % 3.1 Basophils % 0.6 Nucleated Red Blood Cells % 0.0 Neutrophils # 4.4 Lymphocytes # 1.5 Monocytes # 0.4 Eosinophils # 0.2 Basophils # 0.0 Nucleated Red Blood Cells # 0.0 Sodium Level 143 Potassium Level 3.4 L Chloride Level 109 Carbon Dioxide Level 26 Anion Gap 11 Blood Urea Nitrogen < 2 L Creatinine 0.66 Glucose Level 110 Calcium Level 8.9 Medications Medications Current Medications Dextrose/Sodium Chloride (D5-1/2ns) 1,000 ml @ 100 mls/hr Q10H IV Last administered on 02/27/17 03:07; Admin Dose 100 MLS/HR; Start 02/22/17 at 05:30 Morphine Sulfate (morphine) 4 mg Q4H PRN IV PAIN LEVEL 6-10 Last administered on 02/27/17 06:27; Admin Dose 4 MG; Start 02/22/17 at 05:30 Ondansetron HCl (Zofran Inj) 4 mg Q6H PRN IV NAUSEA AND/OR VOMITING Last administered on 02/26/17 13:31; Admin Dose 4 MG; Start 02/22/17 at 05:30 Benazepril HCl (Lotensin) 20 mg DAILY PO Last administered on 02/27/17 09:27; Admin Dose 20 MG; Start 02/22/17 at 09:00 Morphine Sulfate (morphine) 4 mg Q3H PRN IV abd pain Last administered on 11:22; Admin Dose 4 MG; Start 02/23/17 at 16:00 Heparin Sodium (Porcine) (Heparin (5000 Units/0.5 ml)) 5,000 unit BID SC Last administered on 02/27/17 09:28; Admin Dose 5,000 UNIT; Start 02/25/17 at 21:00 Levothyroxine Sodium (Synthroid) 125 mcg DAILY@06 PO Last administered on 06:22; Admin Dose 125 MCG; Start 02/26/17 at 06:00 Acetaminophen (Tylenol Tab) 650 mg Q6 PRN PO PAIN AND OR ELEVATED TEMP Last administered on 02/26/17 21:44; Admin Dose 650 MG; Start 02/25/17 at 23:30 Tramadol HCl (Ultram) 50 mg Q4 PRN PO PAIN Last administered on 02/27/17 04:45 ; Admin Dose 50 MG; Start 02/25/17 at 23:30 Sucralfate (Carafate) 1 gm QID PO ; Start 02/27/17 at 13:00; Status YAJAIRAV JANET SALAS MD Feb 27, 2017 12:33
--- NOTE | 2017-02-27 12:38 | CONS ---
Date/Time of Note Date/Time of Note DATE: 02/27/17 TIME: 12:35 Assessment/Plan Assessment/Plan Chief Complaint/Hosp Course IMPRESSION: 1. Bradycardia to high 40S with stable blood pressure in the setting of hypothyroidism and elevated TSH.- now improved 2. Abnormal electrocardiogram with nonspecific ST-T abnormalities. Negative troponins x2.. NL EF by echo EF 60-65 3. Hypertension, reasonable control. 4. Abdominal pain, likely from biliary source. 5. Abnormal MRCP with intrahepatic and extrahepatic ductal dilatation s/p ERCP 6. Increased liver function tests. 7. Hypothyroidism with elevated TSH s/p incrase in synthroid with improved bradycardia RECC: -Tele -Benazepril -Continue synthroid -Follow HR/BP closely -started on suclrafate -ONgoing GI eval Problems: Consultation Date/Type/Reason Admit Date/Time Feb 22, 2017 at 04:15 Initial Consult Date 02/22/17 Type of Consultation: Cardiology Reason for Consultation bardycardia Referring Provider: HARPER GLASGOW Exam/Review of Systems Vital Signs Vitals Vital Signs Date Time Temp Pulse Resp B/P Pulse Ox O2 Delivery O2 Flow Rate FiO2 02/27/17 12:15 57 02/27/17 11:30 98.0 20 134/74 100 02/24/17 21:08 Nasal Cannula 2.0 Intake and Output 02/26/17 02/26/17 02/27/17 15:00 23:00 07:00 Intake Total 2160 ml 800 ml Output Total 1800 ml Balance 360 ml 800 ml Exam Review of Systems: CONSTITUTIONAL: No fevers, chills. PULMONARY: No sob CARDIOVASCULAR: No chest pain/palpitations GASTROINTESTINAL: No nausea/vomiting. GENITOURINARY: No hematuria/dysuria. MUSCULOSKELETAL: No myagias/arthalgias. PSYCHIATRIC: The patient denies depression. NEUROLOGIC: No weakness Constitutional: other (sleeping) Psych: no complaints Head: normocephalic ENMT: mucosa pink and moist Neck: jvd (8 cm water), supple Respiratory: clear to auscultation Cardiovascular: regular rate and rhythm Gastrointestinal: non-tender, soft Musculoskeletal: muscle tone (normal) Extremities: edema (none) Neurological: other (No focal deficits) Results Result Diagram: 02/27/17 0756 02/27/17 0756 Results 24 hrs Laboratory Tests Test 02/27/17 07:56 White Blood Count 6.5 Red Blood Count 3.30 L Hemoglobin 10.3 L Hematocrit 30.7 L Mean Corpuscular Volume 93.0 Mean Corpuscular Hemoglobin 31.2 Mean Corpuscular Hemoglobin Concent 33.6 Red Cell Distribution Width 12.6 Platelet Count 173 Mean Platelet Volume 10.4 Neutrophils % 68.0 Lymphocytes % 22.6 Monocytes % 5.5 Eosinophils % 3.1 Basophils % 0.6 Nucleated Red Blood Cells % 0.0 Neutrophils # 4.4 Lymphocytes # 1.5 Monocytes # 0.4 Eosinophils # 0.2 Basophils # 0.0 Nucleated Red Blood Cells # 0.0 Sodium Level 143 Potassium Level 3.4 L Chloride Level 109 Carbon Dioxide Level 26 Anion Gap 11 Blood Urea Nitrogen < 2 L Creatinine 0.66 Glucose Level 110 Calcium Level 8.9 Medications Medications Current Medications Dextrose/Sodium Chloride (D5-1/2ns) 1,000 ml @ 100 mls/hr Q10H IV Last administered on 02/27/17 03:07; Admin Dose 100 MLS/HR; Start 02/22/17 at 05:30 Morphine Sulfate (morphine) 4 mg Q4H PRN IV PAIN LEVEL 6-10 Last administered on 02/27/17 06:27; Admin Dose 4 MG; Start 02/22/17 at 05:30 Ondansetron HCl (Zofran Inj) 4 mg Q6H PRN IV NAUSEA AND/OR VOMITING Last administered on 02/26/17 13:31; Admin Dose 4 MG; Start 02/22/17 at 05:30 Benazepril HCl (Lotensin) 20 mg DAILY PO Last administered on 02/27/17 09:27; Admin Dose 20 MG; Start 02/22/17 at 09:00 Morphine Sulfate (morphine) 4 mg Q3H PRN IV abd pain Last administered on 11:22; Admin Dose 4 MG; Start 02/23/17 at 16:00 Heparin Sodium (Porcine) (Heparin (5000 Units/0.5 ml)) 5,000 unit BID SC Last administered on 02/27/17 09:28; Admin Dose 5,000 UNIT; Start 02/25/17 at 21:00 Levothyroxine Sodium (Synthroid) 125 mcg DAILY@06 PO Last administered on 06:22; Admin Dose 125 MCG; Start 02/26/17 at 06:00 Acetaminophen (Tylenol Tab) 650 mg Q6 PRN PO PAIN AND OR ELEVATED TEMP Last administered on 02/26/17 21:44; Admin Dose 650 MG; Start 02/25/17 at 23:30 Tramadol HCl (Ultram) 50 mg Q4 PRN PO PAIN Last administered on 02/27/17 04:45 ; Admin Dose 50 MG; Start 02/25/17 at 23:30 Sucralfate (Carafate) 1 gm QID PO ; Start 02/27/17 at 13:00 KARLI ALLEN Feb 27, 2017 12:37
[2017-02-27] MEDS: SUCRALFATE 1 GM TAB PO SCH ×3 (15:34→20:49)
[2017-02-27] MEDS ORDERED: morphine 2 MG INJ IV PRN ×2 (19:00)
[2017-02-27] MEDS: ONDANSETRON 4 MG INJ IV PRN (20:49)
[2017-02-28] VITALS: BP 146/68; PULSE 70; RESP 19
[2017-02-28] MEDS ORDERED: HALOPERIDOL 5 MG INJ IM ONE ×2 (01:00)
[2017-02-28] MEDS ORDERED: QUETIAPINE 25 MG TAB PO ONE (01:00)
[2017-02-28] MEDS: traMADol 50 MG TAB PO PRN (01:07)
[2017-02-28 04:00] VITALS: BP 139/65; RESP 20
[2017-02-28] MEDS: DEXTROSE 5%-0.45% NACL 1,000 ML IV SCH (04:14)
[2017-02-28 04:27] VITALS: PULSE 78
[2017-02-28] MEDS: LEVOTHYROXINE 125 MCG TAB PO SCH (06:06)
[2017-02-28 07:24] LABS: ADD SCAN DIFF NO
[2017-02-28 07:31] LABS: BASOPHILS % 0.7 % (0.0-2.0); EOSINOPHILS # 0.1 10^3/ul (0.0-0.5); EOSINOPHILS % 2.2 % (0.0-7.0); HEMATOCRIT 31.8 % (37.0-47.0); HEMOGLOBIN 10.9 g/dl (12.0-16.0); LYMPHOCYTES # 1.7 10^3/ul (0.8-2.9); LYMPHOCYTES % 28.5 % (15.0-51.0); MEAN CORPUSCULAR HEMOGLOBIN 31.9 pg (29.0-33.0); MEAN CORPUSCULAR HGB CONC 34.3 g/dl (32.0-37.0); MEAN PLATELET VOLUME 10.3 fl (7.4-10.4); MONOCYTE # 0.4 10^3/ul (0.3-0.9); MONOCYTES % 7.3 % (0.0-11.0); NEUTROPHIL # 3.7 10^3/ul (1.6-7.5); NEUTROPHILS % 61.1 % (39.0-77.0); PLATELET COUNT 207 10^3/UL (140-415); RED BLOOD COUNT 3.42 10^6/ul (4.20-5.40); RED CELL DISTRIBUTION WIDTH 12.5 % (11.5-14.5)
[2017-02-28 08:00] LABS: ANION GAP 12 (8-16); CALCIUM 8.9 mg/dl (8.4-10.2); CARBON DIOXIDE 28 mmol/L (21-31); CHLORIDE 109 mmol/L (97-110); CREATININE 0.71 mg/dl (0.44-1.00); GLUCOSE 114 mg/dl (70-220); POTASSIUM 3.8 mmol/L (3.5-5.1); SODIUM 145 mmol/L (135-144)
[2017-02-28 08:03] LABS: AMYLASE 121 U/L (11-123)
[2017-02-28 08:06] LABS: BLOOD UREA NITROGEN < 2 mg/dl (7-20)
[2017-02-28 08:28] VITALS: PULSE 68
[2017-02-28] MEDS: SUCRALFATE 1 GM TAB PO SCH (08:58)
[2017-02-28] MEDS: BENAZEPRIL 20 MG TAB PO SCH (08:58)
[2017-02-28] MEDS: HEPARIN 5,000 UNIT/0.5 ML VIAL SC SCH (08:58)
--- NOTE | 2017-02-28 10:28 | PDOCDIS ---
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 Hernandez in 1 week; Primary doctor in 2 weeks JANET SALAS MD Feb 28, 2017 10:28
[2017-02-28] MEDS ORDERED: SUCR1TAB27 PO (10:29)
[2017-02-28] MEDS ORDERED: LEVO125T PO (10:29)
--- NOTE | 2017-02-28 10:32 | PN ---
Date/Time of Note Date/Time of Note DATE: 02/28/17 TIME: 10:30 Assessment/Plan VTE Prophylaxis VTE Prophylaxis Intervention: ambulation Lines/Catheters IV [facility] Type (from [facility] Peripheral IV Urinary Cath still in place: No Assessment/Plan Assessment/Plan Assessment/Plan Recurrent epigastric and right upper quadrant pain/abnormal liver function tests improved S/P cholecystectomy ERCP 02/24/2017 Normal pancreatogram Difficult cannulation requiring access precut sphincterotomy and standard sphincterotomy. Dilated common bile duct, but no intraductal stones or other pathology Bradycardia improved Plan: continue present management stable for outpatient management case was discussed with Dr Hernandez Subjective 24 Hr Interval Summary Free Text/Dictation * Course reviewed with RN * Patient seen and examined * Denies abdominal pain,headache ,fever * Episode of confusion last night Exam/Review of Systems Vital Signs Vitals Vital Signs Date Time Temp Pulse Resp B/P Pulse Ox O2 Delivery O2 Flow Rate FiO2 02/28/17 08:28 68 02/28/17 04:00 98.0 20 139/65 99 02/27/17 20:00 Nasal Cannula 02/24/17 21:08 2.0 Intake and Output 02/27/17 02/27/17 02/28/17 15:00 23:00 07:00 Intake Total 1250 ml 960 ml 1440 ml Output Total 1500 ml 1800 ml 100 ml Balance -250 ml -840 ml 1340 ml Exam Constitutional: alert, oriented Neck: non-tender, supple Respiratory: clear to auscultation, normal air movement Cardiovascular: nl pulses, regular rate and rhythm Gastrointestinal: nl liver, spleen, non-tender, soft Musculoskeletal: nl extremities to inspection, nl gait and stance Extremities: normal pulses Neurological: nl speech, nl strength Skin: nl turgor, No rash or lesions Lymph: nl lymph nodes Results Result Diagram: 02/28/17 0550 02/28/17 0550 Results 24 hrs Laboratory Tests Test 02/28/17 05:50 White Blood Count 6.0 Red Blood Count 3.42 L Hemoglobin 10.9 L Hematocrit 31.8 L Mean Corpuscular Volume 93.0 Mean Corpuscular Hemoglobin 31.9 Mean Corpuscular Hemoglobin Concent 34.3 Red Cell Distribution Width 12.5 Platelet Count 207 Mean Platelet Volume 10.3 Neutrophils % 61.1 Lymphocytes % 28.5 Monocytes % 7.3 Eosinophils % 2.2 Basophils % 0.7 Nucleated Red Blood Cells % 0.0 Neutrophils # 3.7 Lymphocytes # 1.7 Monocytes # 0.4 Eosinophils # 0.1 Basophils # 0.0 Nucleated Red Blood Cells # 0.0 Sodium Level 145 H Potassium Level 3.8 Chloride Level 109 Carbon Dioxide Level 28 Anion Gap 12 Blood Urea Nitrogen < 2 L Creatinine 0.71 Glucose Level 114 Calcium Level 8.9 Amylase Level 121 Lipase 122 Medications Medications Current Medications Dextrose/Sodium Chloride (D5-1/2ns) 1,000 ml @ 100 mls/hr Q10H IV Last administered on 02/28/17 04:14; Admin Dose 100 MLS/HR; Start 02/22/17 at 05:30 Ondansetron HCl (Zofran Inj) 4 mg Q6H PRN IV NAUSEA AND/OR VOMITING Last administered on 02/27/17 20:49; Admin Dose 4 MG; Start 02/22/17 at 05:30 Benazepril HCl (Lotensin) 20 mg DAILY PO Last administered on 02/27/17 09:27; Admin Dose 20 MG; Start 02/22/17 at 09:00 Heparin Sodium (Porcine) (Heparin (5000 Units/0.5 ml)) 5,000 unit BID SC Last administered on 02/27/17 20:56; Admin Dose 5,000 UNIT; Start 02/25/17 at 21:00 Levothyroxine Sodium (Synthroid) 125 mcg DAILY@06 PO Last administered on 06:06; Admin Dose 125 MCG; Start 02/26/17 at 06:00 Acetaminophen (Tylenol Tab) 650 mg Q6 PRN PO PAIN AND OR ELEVATED TEMP Last administered on 02/26/17 21:44; Admin Dose 650 MG; Start 02/25/17 at 23:30 Tramadol HCl (Ultram) 50 mg Q4 PRN PO PAIN Last administered on 02/28/17 01:07 ; Admin Dose 50 MG; Start 02/25/17 at 23:30 Sucralfate (Carafate) 1 gm QID PO Last administered on 02/27/17 20:49; Admin Dose 1 GM; Start 02/27/17 at 13:00 Morphine Sulfate (morphine) 1 mg Q4H PRN IV MODERATE PAIN; Start 02/27/17 at 19 :00 Morphine Sulfate (morphine) 2 mg Q4H PRN IV SEVERE PAIN; Start 02/27/17 at 19: 00 CARLOS HERNANDEZ MD Feb 28, 2017 10:32
[2017-02-28 12:17] VITALS: PULSE 63
--- NOTE | 2017-02-28 13:38 | CONS ---
Date/Time of Note Date/Time of Note DATE: 02/28/17 TIME: 13:37 Assessment/Plan Assessment/Plan Chief Complaint/Hosp Course IMPRESSION: 1. Bradycardia to high 40S with stable blood pressure in the setting of hypothyroidism and elevated TSH.- now improved 2. Abnormal electrocardiogram with nonspecific ST-T abnormalities. Negative troponins x2.. NL EF by echo EF 60-65 3. Hypertension, reasonable control. 4. Abdominal pain, likely from biliary source. 5. Abnormal MRCP with intrahepatic and extrahepatic ductal dilatation s/p ERCP 6. Increased liver function tests. 7. Hypothyroidism with elevated TSH s/p incrase in synthroid with improved bradycardia RECC: -Tele -Benazepril -Continue synthroid -Follow HR/BP closely -started on suclrafate -D/C planning Problems: Consultation Date/Type/Reason Admit Date/Time Feb 22, 2017 at 04:15 Initial Consult Date 02/22/17 Type of Consultation: Cardiology Reason for Consultation BRadycradia Referring Provider: HARPER GLASGOW Exam/Review of Systems Vital Signs Vitals Vital Signs Date Time Temp Pulse Resp B/P Pulse Ox O2 Delivery O2 Flow Rate FiO2 02/28/17 12:17 63 02/28/17 08:00 Nasal Cannula 02/28/17 04:00 98.0 20 139/65 99 02/24/17 21:08 2.0 Intake and Output 02/27/17 02/27/17 02/28/17 15:00 23:00 07:00 Intake Total 1250 ml 960 ml 1440 ml Output Total 1500 ml 1800 ml 100 ml Balance -250 ml -840 ml 1340 ml Exam Review of Systems: CONSTITUTIONAL: No fevers, chills. PULMONARY: No sob CARDIOVASCULAR: No chest pain/palpitations GASTROINTESTINAL: No nausea/vomiting. GENITOURINARY: No hematuria/dysuria. MUSCULOSKELETAL: No myagias/arthalgias. PSYCHIATRIC: The patient denies depression. NEUROLOGIC: No weakness Constitutional: alert, oriented Psych: no complaints Head: normocephalic ENMT: mucosa pink and moist Neck: jvd (8-9 cm water), supple Respiratory: clear to auscultation Cardiovascular: regular rate and rhythm Gastrointestinal: non-tender, soft Musculoskeletal: muscle tone (normal) Extremities: edema (none) Neurological: other (No focal deficits) Results Result Diagram: 02/28/17 0550 02/28/17 0550 Results 24 hrs Laboratory Tests Test 02/28/17 05:50 White Blood Count 6.0 Red Blood Count 3.42 L Hemoglobin 10.9 L Hematocrit 31.8 L Mean Corpuscular Volume 93.0 Mean Corpuscular Hemoglobin 31.9 Mean Corpuscular Hemoglobin Concent 34.3 Red Cell Distribution Width 12.5 Platelet Count 207 Mean Platelet Volume 10.3 Neutrophils % 61.1 Lymphocytes % 28.5 Monocytes % 7.3 Eosinophils % 2.2 Basophils % 0.7 Nucleated Red Blood Cells % 0.0 Neutrophils # 3.7 Lymphocytes # 1.7 Monocytes # 0.4 Eosinophils # 0.1 Basophils # 0.0 Nucleated Red Blood Cells # 0.0 Sodium Level 145 H Potassium Level 3.8 Chloride Level 109 Carbon Dioxide Level 28 Anion Gap 12 Blood Urea Nitrogen < 2 L Creatinine 0.71 Glucose Level 114 Calcium Level 8.9 Amylase Level 121 Lipase 122 Medications Medications Current Medications Dextrose/Sodium Chloride (D5-1/2ns) 1,000 ml @ 100 mls/hr Q10H IV Last administered on 02/28/17 04:14; Admin Dose 100 MLS/HR; Start 02/22/17 at 05:30 Ondansetron HCl (Zofran Inj) 4 mg Q6H PRN IV NAUSEA AND/OR VOMITING Last administered on 02/27/17 20:49; Admin Dose 4 MG; Start 02/22/17 at 05:30 Benazepril HCl (Lotensin) 20 mg DAILY PO Last administered on 02/27/17 09:27; Admin Dose 20 MG; Start 02/22/17 at 09:00 Heparin Sodium (Porcine) (Heparin (5000 Units/0.5 ml)) 5,000 unit BID SC Last administered on 02/27/17 20:56; Admin Dose 5,000 UNIT; Start 02/25/17 at 21:00 Levothyroxine Sodium (Synthroid) 125 mcg DAILY@06 PO Last administered on 06:06; Admin Dose 125 MCG; Start 02/26/17 at 06:00 Acetaminophen (Tylenol Tab) 650 mg Q6 PRN PO PAIN AND OR ELEVATED TEMP Last administered on 02/26/17 21:44; Admin Dose 650 MG; Start 02/25/17 at 23:30 Tramadol HCl (Ultram) 50 mg Q4 PRN PO PAIN Last administered on 02/28/17 01:07 ; Admin Dose 50 MG; Start 02/25/17 at 23:30 Sucralfate (Carafate) 1 gm QID PO Last administered on 02/27/17 20:49; Admin Dose 1 GM; Start 02/27/17 at 13:00 Morphine Sulfate (morphine) 1 mg Q4H PRN IV MODERATE PAIN; Start 02/27/17 at 19 :00 Morphine Sulfate (morphine) 2 mg Q4H PRN IV SEVERE PAIN; Start 02/27/17 at 19: 00 KARLI ALLEN Feb 28, 2017 13:38
== END 2017-02-28 14:20 | disposition home or self-care (01) | DRG 446 ==
LOC: MS1 04:15 → MS4 02-23 09:00
PROVIDERS: ADMIT Internal Medicine; ATTEND Internal Medicine
PROC: 0F7D8ZZ Dilation of Pancreatic Duct, Via Natural or Artificial Opening Endoscopic (ICD-10-PCS; 2017-02-24)
PROC: 0F758ZZ Dilation of Right Hepatic Duct, Via Natural or Artificial Opening Endoscopic (ICD-10-PCS; 2017-02-24)
PROC: 0F768ZZ Dilation of Left Hepatic Duct, Via Natural or Artificial Opening Endoscopic (ICD-10-PCS; 2017-02-24)
PROC: 0F788ZZ Dilation of Cystic Duct, Via Natural or Artificial Opening Endoscopic (ICD-10-PCS; 2017-02-24)
PROC: 0F798ZZ Dilation of Common Bile Duct, Via Natural or Artificial Opening Endoscopic (ICD-10-PCS; 2017-02-24)
PROC: 0F7C8ZZ Dilation of Ampulla of Vater, Via Natural or Artificial Opening Endoscopic (ICD-10-PCS; principal; 2017-02-24 17:30)
DX: K83.8 Other specified diseases of biliary tract (principal); I10 Essential (primary) hypertension; R00.1 Bradycardia, unspecified; E03.9 Hypothyroidism, unspecified; F41.9 Anxiety disorder, unspecified; F32.9 Major depressive disorder, single episode, unspecified; R94.31 Abnormal electrocardiogram [ECG] [EKG]; R94.5 Abnormal results of liver function studies; Z90.49 Acquired absence of other specified parts of digestive tract
CPT/HCPCS: 71010; 74181; 74330; 80048; 80053; 80076; 82150; 82728; 83690; 83735; 84100; 84439; 84443; 84484; 85025; 85610; 85730; 86255; 86704; 86709; 86803; 87081; 87340; 93005; 93306; J0360; J0690; J1630; J1644; J2175; J2250; J2270; J2405; J2710; J3010; J3480; J7042; Q9967

== ENCOUNTER 2017-03-18 10:11 | Emergency (ER) | payer OTHER ==
[~2017-03-18] VITALS: Ht 160 cm; Wt 56.8 kg
[~2017-03-18 10:11] MED LIST changes: +LEVO125T PO; +SUCR1TAB27 PO; -SYN1
[2017-03-18] MEDS ORDERED: SOD CHLORIDE 0.9% 1,000 ML IV STA (10:18)
[2017-03-18 10:25] VITALS: BP 116/76; PULSE 54; RESP 12; TEMP 98.3
[2017-03-18 10:30] VITALS: Ht 160 cm; Wt 56.8 kg
[2017-03-18 10:40] LABS: ADD SCAN DIFF NO
--- NOTE | 2017-03-18 10:41 | ERD ---
ER Documentation Chief Complaint Date/Time DATE: 03/18/17 TIME: 10:39 Chief Complaint HPI 56-year-old female who presents to the emergency room with an episode of near syncope. The patient had a recent hospitalization for choledocholithiasis status post ERCP. She recently started taking tramadol. She took tramadol this morning without taking food. While in structural fitter's office she started to feel lightheaded and overwhelmed. Patient denied any chest pain or shortness of breath, she states symptoms are resolving currently. She denies any vomiting or diarrhea, no further abdominal pain. She has not followed up as an outpatient with a general surgeon. There also appear to be some social stressors reported by patient and family. Her son is acting as an educational interpreter. ROS All systems reviewed and are negative except as per history of present illness. Medications Home Meds Active Scripts Levothyroxine Sodium* (Synthroid*) 125 Mcg Tablet, 125 MCG PO DAILY@06 for 30 Days, TAB 3 Refills Prov:JANET SALAS MD 02/28/17 Tramadol Hcl* (Ultram*) 50 Mg Tablet, 50 MG PO Q6H Y for PAIN, #14 TAB Prov:YOHAN VELASQUEZ MD 01/19/17 Ondansetron (Ondansetron Odt) 8 Mg Tab.rapdis, 8 MG PO Q6H Y for NAUSEA AND/OR VOMITING, #6 TAB Prov:YOHAN VELASQUEZ MD 01/19/17 Benazepril Hcl* (Lotensin*) 20 Mg Tablet, 20 MG PO DAILY, #30 TAB Prov:YOHAN VELASQUEZ MD 01/19/17 Discontinued Reported Medications [Trazadone] No Conflict Check 06/12/13 [Advil] No Conflict Check 06/12/13 Discontinued Scripts Sucralfate (Carafate) 1 Gm Tablet, 1 GM PO QID for 30 Days, TAB Prov:JANET SALAS MD 02/28/17 Allergies Allergies: Coded Allergies: No Known Allergy (Verified , 03/18/17) PMhx/Soc History of Surgery: Yes (GALLSTONE SX) Anesthesia Reaction: No Hx Neurological Disorder: No Hx Respiratory Disorders: No Hx Cardiac Disorders: Yes (HTN) Hx Psychiatric Problems: No Hx Miscellaneous Medical Probl: No Hx Alcohol Use: No Hx Substance Use: No Hx Tobacco Use: No FmHx Family History: No diabetes Physical Exam Vitals Vital Signs Date Time Temp Pulse Resp B/P Pulse Ox O2 Delivery O2 Flow Rate FiO2 03/18/17 10:30 98.6 57 12 120/75 100 03/18/17 10:25 98.3 54 12 116/76 100 Room Air Physical Exam General: Well developed, well nourished, no acute distress Head: Normocephalic, atraumatic. Eyes: Pupils equally reactive, EOM intact ENT: Moist mucous membranes Neck: Supple, no lymphadenopathy Respiratory: Lungs clear bilaterally, no distress Cardiovascular: RRR, no murmurs, rubs, or gallops Abdominal: Soft, non-tender, non-distended, no peritoneal signs : Deferred MSK: No edema, no unilateral swelling, 5/5 strength Neurologic: Alert and oriented, moving all extremities, normal speech, no focal weakness, no cerebellar signs Skin: No rash Psych: Normal mood Result Diagram: 03/18/17 1030 Results 24 hrs Laboratory Tests Test 03/18/17 10:30 White Blood Count 5.710^3/ul Red Blood Count 3.7510^6/ul Hemoglobin 12.0g/dl Hematocrit 34.8% Mean Corpuscular Volume 92.8fl Mean Corpuscular Hemoglobin 32.0pg Mean Corpuscular Hemoglobin Concent 34.5g/dl Red Cell Distribution Width 11.9% Platelet Count 06254^3/UL Mean Platelet Volume 9.8fl Neutrophils % 59.8% Lymphocytes % 27.9% Monocytes % 7.6% Eosinophils % 3.4% Basophils % 0.9% Nucleated Red Blood Cells % 0.0/100WBC Neutrophils # 3.410^3/ul Lymphocytes # 1.610^3/ul Monocytes # 0.410^3/ul Eosinophils # 0.210^3/ul Basophils # 0.110^3/ul Nucleated Red Blood Cells # 0.010^3/ul Current Medications Medications (Trade) Dose Ordered Sig/Alexi Route PRN Reason Start Time Stop Time Status Last Admin Dose Admin Sodium Chloride (NS) 1,000 ml @ 1,000 mls/hr Q1H STAT IV 03/18/17 10:18 03/18/17 11:17 DC 03/18/17 11:01 Procedures/MDM EKG, MONITORS, & DIAGNOSTIC IMAGING: EKG: I reviewed and interpreted a 12-lead EKG. Rhythm: Normal sinus rhythm Ectopy: None Intervals: No abnormalities ST segments: No elevations or depressions T waves: No contiguous inversions LAB INTERPRETATION: No anemia MEDICAL DECISION MAKING: The patient presents with an episode of near syncope that is likely secondary to mild dehydration versus narcotic use. The patient took tramadol on an empty stomach. There is also evidence of social stressors. The patient does not have abdominal pain and a do not believe this is a complication secondary to ERCP with sphincterotomy. She has a benign abdominal exam. No signs of hemorrhage or infection or complication. No indication for LFTs. The patient will benefit from a CBC to rule out anemia, EKG to rule out arrhythmia and fluids. ER COURSE: Reassurance provided. The patient was given IV fluids. EKG and laboratory testing are reassuring. The patient was advised to follow-up as an outpatient as planned during her recent hospitalization. Return precautions were discussed. Patient advised to take tramadol on a full stomach. I kept the patient and/or family informed of laboratory and diagnostic imaging results throughout the emergency room course. DISPOSITION PLAN: We discussed follow up with the patient's primary care doctor within 24 to 48 hours as needed. We also discussed return to the emergency room for worsening symptoms or worsening condition. Outpatient referral: [None required] Departure Diagnosis: Primary Impression: Near syncope Condition: Stable MONIKA SCHMIDT MD Mar 18, 2017 10:41
[2017-03-18 10:44] LABS: BASOPHIL # 0.1 10^3/ul (0.0-0.1); BASOPHILS % 0.9 % (0.0-2.0); EOSINOPHILS # 0.2 10^3/ul (0.0-0.5); EOSINOPHILS % 3.4 % (0.0-7.0); HEMATOCRIT 34.8 % (37.0-47.0); LYMPHOCYTES # 1.6 10^3/ul (0.8-2.9); LYMPHOCYTES % 27.9 % (15.0-51.0); MEAN CORPUSCULAR HGB CONC 34.5 g/dl (32.0-37.0); MEAN CORPUSCULAR VOLUME 92.8 fl (82.0-101.0); MEAN PLATELET VOLUME 9.8 fl (7.4-10.4); MONOCYTE # 0.4 10^3/ul (0.3-0.9); MONOCYTES % 7.6 % (0.0-11.0); NEUTROPHIL # 3.4 10^3/ul (1.6-7.5); NEUTROPHILS % 59.8 % (39.0-77.0); PLATELET COUNT 193 10^3/UL (140-415); RED BLOOD COUNT 3.75 10^6/ul (4.20-5.40); RED CELL DISTRIBUTION WIDTH 11.9 % (11.5-14.5); WHITE BLOOD COUNT 5.7 10^3/ul (4.8-10.8)
[2017-03-18 11:03] LABS: CALCIUM 9.2 mg/dl (8.4-10.2); CREATININE 0.96 mg/dl (0.44-1.00); POTASSIUM 3.9 mmol/L (3.5-5.1)
== END 2017-03-18 11:35 | disposition home or self-care (01) ==
LOC: E/R 10:11
DX: R55 Syncope and collapse (principal); I10 Essential (primary) hypertension
CPT/HCPCS: 80048; 85025; 93005; J7030; 36415